=== PATIENT | male | born 1960 | race Caucasian/White ===

== ENCOUNTER 2021-01-07 09:32 | Emergency (ER) | payer OTHER, SELFPAY ==
[2021-01-07] VITALS (8 sets, daily range): BP systolic 146–206; BP diastolic 86–104; PULSE 60–77; RESP 18–20; TEMP 36.6; O2SAT 98; BMI 30.4; BMI 28.4
--- NOTE | 2021-01-07 | ECG_ITS ---
Test Reason : CHEST PAIN Blood Pressure : / mmHG Vent. Rate : 062 BPM Atrial Rate : 062 BPM P-R Int : 152 ms QRS Dur : 104 ms QT Int : 446 ms P-R-T Axes : 062 -22 062 degrees QTc Int : 452 ms Normal sinus rhythm Incomplete right bundle branch block Nonspecific ST and T wave abnormality Abnormal ECG No previous ECGs available Referred By: Lluvia Arcos Electronically Signed By:JUSTA NELSON MD
--- NOTE | ~2021-01-07 | XR_ITS ---
EXAMINATION: XR CHEST CLINICAL INFORMATION: Chest pain COMPARISON: None TECHNIQUE: Portable upright AP view of the chest was obtained. FINDINGS: The lungs are clear. The vascularity is normal. There is no airspace elevation or groundglass opacity or effusion. The heart is normal in size. The hilar and mediastinal contours and bony structures are unremarkable. There is focal irregularity anterior lateral left 6th rib consistent with prior injury, likely healed fracture. No visible lucent fracture line. Recommend correlation with patient's symptoms to exclude acute or recent injury at this site. No pneumothorax or pleural reaction. XR/XR chest 1V IMPRESSION: 1. Lungs clear. No pneumothorax, infiltrate, or effusion. 2. Left anterolateral sixth rib fracture, likely old. The Recommend correlation with patient's symptoms and clinical exam to exclude recent injury at this site.
--- NOTE | 2021-01-07 09:51 | ED_ITS ---
HPI - Chest Pain General Chief Complaint: Chest Pain Stated Complaint: chest pain, clammy skin, arm numbness, hbp Time Seen by Provider: 01/07/21 09:51 Source: patient Mode of arrival: ambulatory Limitations: no limitations History of Present Illness complaint: chest pain Onset (ago): day(s) (3) Timing of current episode: episodic Prior episodes: No Onset: during exertion Pain location: substernal Pain radiation: right arm and left arm Severity: moderate Quality: tightness and heaviness Relieving factors: rest Exacerbating factors: exertion Associated symptoms: nausea, diaphoresis and dyspnea Treatment prior to arrival: none Related Data Allergies Allergy/AdvReac Type Severity Reaction Status Date / Time No Known Allergies Allergy Verified 01/07/21 09:56 Review of Systems Review of Systems: Constitutional : No Weight loss, No Fever, No Chills, pos sweats ENT/Mouth : No sore throat, No Rhinorrhea Eyes: No Eye Pain, No Swelling Cardiovascular : pos Chest Pain, pos SOB, pos Dyspnea on Exertion, No Orthopnea, No Edema, No Palpitations Respiratory : No Cough, No Sputum Gastrointestinal : pos Nausea, No Vomiting, No Diarrhea, No abdominal Pain, No Hematochezia, No Melena Genitourinary : No Dysuria, No Urinary Frequency Musculoskeletal : No joint pain, No Myalgias, No Joint Swelling Skin : No Skin Lesions, No rash Neuro : No Weakness, No Numbness, No Dizziness, No Headache Psych : No Anxiety/Panic, No Depression Heme/Lymph: No Bruising, No Lymphadenopathy Endocrine : No Polyuria, No Polydipsia All other systems reviewed and are negative PMFSH Past Medical History Attestation statement: The following information was validated with the patient. Medical History Depression Diabetes Patient denies medical problems Social History Social History Alcohol intake: never Patient Tobacco Use Status: Never used Tobacco Substance Use Type: Marijuana Physical Exam Vital Signs: Vital Signs: Last Vital Signs Temp 98 F 01/07/21 09:45 Pulse 77 01/07/21 11:41 Resp 20 01/07/21 11:41 BP 154/88 H 01/07/21 11:41 Pulse Ox 98 01/07/21 10:01 Body Mass Index 28.4 Appearance: Alert. Oriented X3. No acute distress. Eyes: Pupils equal, round and reactive to light. ENT: Pharynx normal. Neck: Normal inspection. Neck supple. CVS: Normal heart rate and rhythm. Pulses normal. Respiratory: No respiratory distress. Breath sounds normal. Abdomen: Soft and non-tender. Femoral pulses intact bilaterally Skin: Skin warm and dry. Normal skin color. Normal skin turgor. Extremities: No lower extremity edema. No calf ttp Neuro: Oriented X 3. No motor deficit. No sensory deficit. Course Course Course Narrative: BP improving and chest pain gone with nitro given 324mg ASA chest pain gone with nitro x2 Dr. Marques aware I have ordered heparin drip - still reports some mild discomfort ECHO ordered - tech at bedside Dr. 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 Anticipate admission for chest pain given his presentation vs transfer for UA/NSTEMI pending results. Patient aware of plan for need for further cardiac workup. Lab Data Result diagrams: 01/07/21 10:09 01/07/21 10:09 Labs: Lab Results 01/07/21 01/07/21 01/07/21 Range/Units 10:09 10:09 10:09 WBC 11.9 H (4.8-10.8) X10*3/uL RBC 5.37 (4.60-5.80) X10*6/uL Hgb 16.5 (14.0-18.0) g/dl Hct 46.0 (42.0-52.0) % MCV 85.7 (80.0-98.0) fL MCH 30.7 (27.0-33.0) pg MCHC 35.9 (31.0-36.0) g/dl RDW 12.8 (11.0-16.0) % Plt Count 284 (160-400) X10*3/uL MPV 9.4 (9.4-12.4) fL Immature Gran % (Auto) 0.3 (0.0-0.4) % Neut % (Auto) 79.8 H (45-73) % Lymph % (Auto) 12.3 L (20-40) % [place] % (Auto) 7.2 (2-11) % Eos % (Auto) 0.0 (0-4) % Baso % (Auto) 0.4 (0-2) % Lymph # (Auto) 1.5 (1.2-4.9) X10*3/uL [place] # (Auto) 0.9 (0.1-1.2) X10*3/uL Eos # (Auto) 0.0 (0.0-0.4) X10*3/uL Baso # (Auto) 0.1 (0.0-0.2) X10*3/uL Abs Immat Gran (auto) 0.03 (0.00-0.03) X10*3/uL Absolute Neuts (auto) 9.5 H (2.0-8.3) x10*3/uL Absolute Nucleated RBC 0.000 (0.0-0.012) X10*3/uL Nucleated RBC % (auto) 0.0 (0.0-0.2) /100WBC PT 10.9 (9.9-13.0) SEC INR 1.0 (0.9-1.1) APTT 30.4 (24.1-38.0) SEC D-Dimer High Sensitivty < 150 NG/ML Sodium 135 (135-145) mmol/L Potassium 4.3 (3.3-5.1) mmol/L Chloride 104 (96-108) mmol/L Carbon Dioxide 22 (22-29) mmol/L Anion Gap 13 (12-20) BUN 11 (9-16) mg/dL Creatinine 0.85 (0.5-1.4) mg/dL Estim Creat Clear Calc 125.7 Estimated GFR > 60 Random Glucose 118 H (60-115) mg/dL Calcium 9.7 (8.4-10.2) mg/dL Magnesium 2.1 (1.6-2.6) mg/dL Total Bilirubin 0.6 (0.0-1.0) mg/dL Direct Bilirubin 0.2 (0.0-0.5) mg/dL AST 214 H (5-37) U/L ALT 70 H (0-40) U/L Alkaline Phosphatase 76 (39-117) U/L Troponin I High Sens (<3.5-35.0) ng/L Total Protein 7.7 (6.5-8.0) g/dL Albumin 4.5 (3.5-5.0) g/dL COVID-19 (LACY) (Negative) COVID-19 Clin Com 01/07/21 01/07/21 Range/Units 10:09 10:09 WBC (4.8-10.8) X10*3/uL RBC (4.60-5.80) X10*6/uL Hgb (14.0-18.0) g/dl Hct (42.0-52.0) % MCV (80.0-98.0) fL MCH (27.0-33.0) pg MCHC (31.0-36.0) g/dl RDW (11.0-16.0) % Plt Count (160-400) X10*3/uL MPV (9.4-12.4) fL Immature Gran % (Auto) (0.0-0.4) % Neut % (Auto) (45-73) % Lymph % (Auto) (20-40) % [place] % (Auto) (2-11) % Eos % (Auto) (0-4) % Baso % (Auto) (0-2) % Lymph # (Auto) (1.2-4.9) X10*3/uL [place] # (Auto) (0.1-1.2) X10*3/uL Eos # (Auto) (0.0-0.4) X10*3/uL Baso # (Auto) (0.0-0.2) X10*3/uL Abs Immat Gran (auto) (0.00-0.03) X10*3/uL Absolute Neuts (auto) (2.0-8.3) x10*3/uL Absolute Nucleated RBC (0.0-0.012) X10*3/uL Nucleated RBC % (auto) (0.0-0.2) /100WBC PT (9.9-13.0) SEC INR (0.9-1.1) APTT (24.1-38.0) SEC D-Dimer High Sensitivty NG/ML Sodium (135-145) mmol/L Potassium (3.3-5.1) mmol/L Chloride (96-108) mmol/L Carbon Dioxide (22-29) mmol/L Anion Gap (12-20) BUN (9-16) mg/dL Creatinine (0.5-1.4) mg/dL Estim Creat Clear Calc Estimated GFR Random Glucose (60-115) mg/dL Calcium (8.4-10.2) mg/dL Magnesium (1.6-2.6) mg/dL Total Bilirubin (0.0-1.0) mg/dL Direct Bilirubin (0.0-0.5) mg/dL AST (5-37) U/L ALT (0-40) U/L Alkaline Phosphatase (39-117) U/L Troponin I High Sens 19494.2 H* (<3.5-35.0) ng/L Total Protein (6.5-8.0) g/dL Albumin (3.5-5.0) g/dL COVID-19 (LACY) Negative (Negative) COVID-19 Clin Com See Note ECG Data ECG #1: Attestation: I personally reviewed and interpreted this ECG as follows: ECG interpretation date: 01/07/21 ECG interpretation time: 10:12 Interpretation: Rate: 62 Rhythm: NSR Tyler: normal Normal P waves. Normal GISELL. incomplete RBBB ST T wave : no MY, subtle ST depression V3 qTC: normal prior studies: no priors The study has been interpreted contemporaneously by me. EKG #2 POSTERIOR Rate:78 Rhythm: NSR Tyler: left Normal P waves. Normal GISELL. incomplete RBBB ST T wave : no MY in V7-V9 qTC: normal prior studies: no priors The study has been interpreted contemporaneously by me. . Critical Care Time Critical Care Time Critical Care Time: Yes Total Critical Care Time: 60 Attestation: medical consult, transfer to tertiary center I attest to this time spent taking care of the patient Discharge Plan Discharge Clinical Impression: Non-ST elevation MS (NSTEMI), Unstable angina pectoris Chest pain Qualifiers: Chest pain type: precordial pain Qualified Code(s): R07.2 - Precordial pain Patient Disposition: Xfer Acute Care Hospital Transfer Details: [facility] Interventions: Acute Care Transfer Worksheet (ED) Last Done: 01/07/21 12:00 Discharge Date/Time: 01/07/21 12:00
[2021-01-07] MEDS: Aspirin 81 MG TAB.CHEW 324 MG PO (10:10)
[2021-01-07] MEDS: Nitroglycerin 0.4 MG TAB.SUBL SUBLINGUAL ×2 (10:11→10:33)
[2021-01-07 10:15] LABS: MANUAL DIFF FLAG NO
[2021-01-07 10:16] LABS: Basophils Absolute Auto 0.1 X10*3/uL (0.0-0.2); Basophils Percent Auto 0.4 % (0-2); Hemoglobin 16.5 g/dl (14.0-18.0); Imm Gran Abs Auto 0.03 X10*3/uL (0.00-0.03); Imm Gran Pct Auto 0.3 % (0.0-0.4); Lymphocytes Absolute Auto 1.5 X10*3/uL (1.2-4.9); Lymphocytes Percent Auto 12.3 % (20-40); Mean Corpuscular HGB Conc 35.9 g/dl (31.0-36.0); Mean Corpuscular Hemoglobin 30.7 pg (27.0-33.0); Mean Corpuscular Volume 85.7 fL (80.0-98.0); Mean Platelet Volume 9.4 fL (9.4-12.4); Monocytes Absolute Auto 0.9 X10*3/uL (0.1-1.2); Monocytes Percent Auto 7.2 % (2-11); Neutrophils Absolute Auto 9.5 x10*3/uL (2.0-8.3); Neutrophils Percent Auto 79.8 % (45-73); Platelet Count 284 X10*3/uL (160-400); Red Blood Count 5.37 X10*6/uL (4.60-5.80); Red Cell Distribution Width 12.8 % (11.0-16.0); White Blood Count 11.9 X10*3/uL (4.8-10.8)
--- NOTE | 2021-01-07 10:16 | PC.NURSE ---
pt reports midsternal chest pain that radiates to bilateral upper extremities, some tingling in the fingers, slight nausea and also reports some sob, ns on the monitor 60-70, slightly hypertensive, pt already medicate per md orders
[2021-01-07 10:27] LABS: Prothrombin Time 10.9 SEC (9.9-13.0)
[2021-01-07 10:29] LABS: Partial Thromboplastin Time 30.4 SEC (24.1-38.0)
[2021-01-07 10:31] LABS: COVID-19 Test Negative (Negative); IDNOW Serial# 9DD0AD1C
--- NOTE | 2021-01-07 10:32 | PC.NURSE ---
pt reports feeling a little better after the first nitro, pain at 4/10, pt received his second dose of nitro
[2021-01-07 10:36] LABS: D Dimer High Sensitivity < 150 NG/ML
[2021-01-07 10:40] LABS: Alanine Aminotransferase 70 U/L (0-40); Albumin Level 4.5 g/dL (3.5-5.0); Alkaline Phosphatase 76 U/L (39-117); Anion Gap 13 (12-20); Aspartate Amino Transferase 214 U/L (5-37); Bilirubin Direct 0.2 mg/dL (0.0-0.5); Bilirubin Total 0.6 mg/dL (0.0-1.0); Blood Urea Nitrogen 11 mg/dL (9-16); Calcium 9.7 mg/dL (8.4-10.2); Carbon Dioxide 22 mmol/L (22-29); Chloride 104 mmol/L (96-108); Creatinine Clr Calc Pharmacy 125.7; Estimated Glomerular Filt Rate > 60; Glucose Random 118 mg/dL (60-115); Magnesium 2.1 mg/dL (1.6-2.6); Potassium 4.3 mmol/L (3.3-5.1); Sodium 135 mmol/L (135-145); Total Protein 7.7 g/dL (6.5-8.0)
--- NOTE | 2021-01-07 10:52 | PC.NURSE ---
pt reports feeling better after the second nitro, reprots that the chest tightness is getting better nut unable to give a number
--- NOTE | 2021-01-07 11:01 | CA_ITS ---
Transthoracic Echocardiogram Patient (Last, First, Middle): Keo Kingston, Gender: Male Date of : 1960 Age: 60 Procedure Date: 01/07/2021 Procedure Type: Transthoracic Echocardiogram Location: ER Height: 193.04 cm Weight: 106.14 kg BSA: 2.37 m2 Heart Rate: bpm BP: 155 / 101 mmHg Tabular Typist: BETO Referring MD: Lluvia Arcos DO Symptoms: chest pain, NSTEMI Study Quality: Fair Conclusions: - 1. Low normal LV systolic function with grade 1 diastolic dysfunction with moderate asymmetric septal hypertrophy with regional wall motion abnormality in circumflex territory 2. Normal cardiac valvular Doppler 3. Normal RV systolic pressure 4. No pericardial effusion Findings Left Ventricle Normal left ventricular cavity size. There is normal left ventricular wall thickness. The left ventricular systolic function is low normal. The visually estimated ejection fraction is between 50-55%. There is evidence of regional wall motion abnormalities. Spectral Doppler is indicative of an impaired relaxation filling pattern. E/E prime ratio is <8, consistent with normal filling pressures. Evidence suggests grade I (mild) diastolic dysfunction. There is moderate septal asymmetric hypertrophy. Wall Motion Rest Echo Findings The anterolateral wall and inferolateral wall are hypokinetic. All other scored wall segments showed normal motion. Right Ventricle Normal right ventricular cavity size and systolic function. Atria The left atrium is likely dilated. There is lipomatous hypertrophy of the interatrial septum. There is no evidence of interatrial shunt. The right atrium is normal in size. Aortic Valve There is mild thickening of the aortic valve. There is no aortic valve stenosis. There is no aortic valve regurgitation. Mitral Valve There is mild anterior and posterior mitral leaflet thickening. There is mild mitral annular calcification. There is trace mitral valve regurgitation. There is no mitral valve stenosis. Pulmonic Valve The pulmonic valve was not well visualized. Tricuspid Valve Likely normal tricuspid valve structure and function. There is mild tricuspid valve regurgitation. The right ventricular systolic pressure is normal. The right ventricular systolic pressure is 25 mmHg. Normal right atrial pressure. There is no evidence of pulmonary hypertension. Great Vessels The pulmonary artery was not well visualized. There is mild dilatation of the ascending aorta measuring 3.80 cm. Venous The inferior vena cava is normal in size and collapses greater than 50% with inspiration. Pericardium/Pleural There is no evidence of pericardial effusion. Prior Study Comparison No prior study available for comparison. Measurements 2D Linear Measurements IVSd: 1.60 0.6-0.9/0.6-1.0 cm LVIDd: 4.55 3.9-5.3/4.2-5.9 cm LVIDd Index: 1.92 2.4-3.2/2.2-3.1 cm/m2 LVIDs: 3.23 2.0-3.6 cm LVPWd: 1.13 0.7-1.1 cm Ao Root: 3.60 2.1-3.5 cm LA Diam: 4.60 2.7-3.8/3.0-4.0 cm LAIDs Index: 1.94 1.5-2.3 cm/m2 LV Mass: 303.30 67-162/88-224 g LV Mass Index: 127.97 43-95/49-115 g/m2 LVOT Diam: 2.10 3.0+(-)1.3 cm Mitral Valve MV Pk E: 0.32 MV PK A: 0.72 MV Decel Time: 415.00 E/A: 0.40 E'Lateral: 3.92 E'Medial: 4.24 E/E' Med: 7.50 E/E' Lat: 8.10 PHT: 121.00 MVA PHT: 1.82 Decel [place]: 0.77 Aortic Valve AoV Pk Joon: 1.46 AoV Mn Joon: 1.03 AoV VTI: 0.26 AoV Pk Grad: 9.00 Aov Mn Grad: 5.00 MACHELLE Cont.VTI: 2.59 LVOT LVOT Pk Joon: 1.04 LVOT Mn Joon: 0.71 LVOT VTI: 0.19 LVOT Pk Grad: 4.00 LVOT Mn Grad: 2.00 LVOT Diam: 2.10 LVOT Area: 3.46 Diastolic Function MV Pk E: 0.32 MV Pk A: 0.72 E/A: 0.40 E'Medial: 4.24 E/E' Med: 7.50 E' Laterial: 3.92 E/E' Lat: 8.10 Right Ventricle TAPSE (mm): 14.30 TVS' Joon: 2.19 Tricuspid Valve TR Pk Joon: 2.06 TR Pk Grad: 17.00 RA Press: 8.00 RVSP: 25.00 Great Vessels Aorta Ao Root-2D: 3.60 2.0-3.7 cm Ao Asc: 3.80 2.1-3.4 cm Ao Arch: 3.00 Updated in Other Vendor System with Status of Final Fady Marques MD electronically signed on 01/07/2021 1:47:43 PM with status of Final
[2021-01-07] MEDS: Atorvastatin Calcium 80 MG TABLET PO (11:28)
[2021-01-07] MEDS: Ticagrelor 90 MG TABLET 180 MG PO (11:28)
--- NOTE | 2021-01-07 11:30 | PC.NURSE ---
ECHO BEING PERFORMED AT BEDSIDE
--- NOTE | 2021-01-07 11:33 | ECG_ITS ---
Test Reason : ST ABNORMALITY POSTERIOR EKG Blood Pressure : / mmHG Vent. Rate : 078 BPM Atrial Rate : 078 BPM P-R Int : 152 ms QRS Dur : 098 ms QT Int : 420 ms P-R-T Axes : 047 -41 054 degrees QTc Int : 478 ms Normal sinus rhythm Left axis deviation RSR' or QR pattern in V1 suggests right ventricular conduction delay Nonspecific ST abnormality Anterior leads Abnormal ECG DONE POSTERIORLY. Referred By: Lluvia Arcos Electronically Signed By:JUSTA NELSON MD
[2021-01-07] MEDS: Heparin Sodium,Porcine 5,000 UNIT/ML VIAL 4200 UNIT IVPUSH (11:36)
[2021-01-07] MEDS: Heparin Sodium,Porcine/1/2NS 25,000 UNIT/250 ML IV.SOLN 10 UNIT IVCONT (11:38)
--- NOTE | 2021-01-07 11:51 | PC.NURSE ---
REPORT GIVEN TO ARTURO AT THE [facility]
--- NOTE | 2021-01-07 12:10 | P.CONCA_ITS ---
History of Present Illness History of Present Illness Date of Service: 01/07/21 Requesting physician: Lluvia Arcos Consult reason: myocardial infarction Chief complaint: Acute posterior myocardial infarction Narrative: I was requested to see Keo emergently in cardiology consultation today for acute myocardial infarction. Based on his history. Patient is pleasant 60-year-old male who is limited in activity due to multiple joint and pain related issues. Otherwise very active. Three days ago he went to play golf. While walking into the golf club be developed retrosternal chest pressure tightness associated with feeling clammy and diaphoretic. Pain radiating left arm with numbness. He then turned around and went home. Symptoms lasted for about an hour. Did not seek medical attention. Following day he again had similar symptoms but symptoms subsided and he did not seek medical attention. Symptoms are self-limiting. Following day on [place] had dinner with his brother and following the denied he developed similar symptoms again associated with clamminess, diaphoresis and nausea at this time. He then decided to go home, drove himself home. Symptoms then persisted throughout the night. He to couple of ibuprofen. Symptoms became milder but never completely dissipated. This morning he decided to come to the urgent care. Urgent a was noted to have anterior ST depression, most consistent with possible posterior WV. he was then sent to the emergency room. In the emergency room the EKGs have shown improved ST depression but early transition from V1 to V2 consistent with posterior WV. his initial troponin is 43,000. His blood pressure is elevated he was given 2 sublingual nitroglycerin with improvement in his chest pressure but still present, but he feels lot better. No shortness of breath. Cardiology consult was called emergently for further management plan. Review of Systems Constitutional: Constitutional: Reports no additional constitutional complaints Eyes: Eyes: Reports no additional eye complaints ENT: Reports system reviewed and no additional complaints, except as documented Cardiovascular: Cardiovascular: Reports chest pain, Reports chest pain with activity, Denies lightheadedness, Denies Loss of Consciousness, Denies palpitations, Reports dyspnea and Reports other (Chest discomfort with clamminess, diaphoresis, nausea) Respiratory: Respiratory: Reports no additional respiratory complaints and Reports dyspnea Gastrointestinal: Gastrointestinal: Reports no additional gastrointestinal complaints Genitourinary: Genitourinary: Reports no additional male genitourinary co mplaints Musculoskeletal: Musculoskeletal: Reports no additional musculoskeletal complaints Integumentary/Breasts: Skin/Breast: Reports system reviewed and no additional complaints, except as docu Neurologic: Reports system reviewed and no additional complaints, except as documented Psychiatric: Psychiatric: Reports no additional psychiatric complaints Endocrine: Endocrine: Reports no additional endocrine complaints and Denies palpitations Hematologic/Lymphatic: Hematologic/Lymphatic: Reports no additional hematologic/lymphatic complaints Allergic/Immunologic: Allergic/Immunologic: Reports no additional allergic/immunologic complaints [facility] Past Medical History Medical History Depression Diabetes Patient denies medical problems Social History Social History Alcohol intake: never Patient Tobacco Use Status: Never used Tobacco Use of substances other than those prescribed or required for medical reasons: Yes Substance Use Type: Marijuana Advance Directives: No Advance Directives Information Provided: No Meds Allergies Allergy/AdvReac Type Severity Reaction Status Date / Time No Known Allergies Allergy Verified 01/07/21 09:56 Active Medications: Current Medications Heparin Sodium (Porcine) (Heparin Sodium,Porcine 5,000 Unit/Ml Vial) 4,200 unit 40 unit/kg (4200 unit) IVPUSH PROTOCOL BOLUS PRN; Protocol PRN Reason: 40 unit/kg - Heparin Protocol Last Admin: 01/07/21 11:36 Dose: 4,200 unit Documented by: Heparin Sodium (Porcine) (Heparin Sodium,Porcine 5,000 Unit/Ml Vial) 8,500 unit 80 unit/kg (8500 unit) IVPUSH PROTOCOL BOLUS PRN; Protocol PRN Reason: 80 unit/kg - Heparin Protocol Heparin Sodium/Sodium Chloride () 25,000 unit in 250 mls @ 0 mls/hr IVCONT .Q0M [facility]; Protocol Last Admin: 01/07/21 11:38 Dose: 9.43 units/kg/hr, 10 mls/hr Documented by: Physical Exam Vital Signs: Vital Signs: Last Vital Signs Temp 98 F 01/07/21 09:45 Pulse 77 01/07/21 11:41 Resp 20 01/07/21 11:41 BP 154/88 H 01/07/21 11:41 Pulse Ox 98 01/07/21 10:01 Body Mass Index 28.4 Const: General: cooperative, comfortable, no acute distress, alert and awake Nutritional Appearance: overweight Orientation/consciousness: patient oriented x3 Limitations: no limitations HENMT: Head: Yes normocephalic and Yes atraumatic Neck: Neck: Yes trachea midline, Yes supple and Yes no JVD Chest: Chest palpation & inspection: normal inspection of the chest Resp: Effort & Inspection: normal respiratory effort Auscultation: clear to auscultation bilaterally Cardio: Jugular venous distension: no JVD Palpation: normal PMI Rate: regular rate Rhythm: regular rhythm Heart sounds: S1 normal heart sound present, S2 normal heart sound present, no click, no gallops, no murmurs, no rubs and Other heart sounds present (S4 present) GI: Auscultation: normal bowel sounds Skin: General skin exam: no rashes or lesions noted Neuro: General: patient oriented x3 and no focal motor deficits Extrem: General: Yes no clubbing, cyanosis or edema Psych: Appearance: grossly normal Objective Labs and Meds Result diagrams: 01/07/21 10:09 01/07/21 10:09 Lab results: Laboratory Results - last 24 hr 01/07/21 01/07/21 01/07/21 10:09 10:09 10:09 WBC 11.9 H RBC 5.37 Hgb 16.5 Hct 46.0 MCV 85.7 MCH 30.7 MCHC 35.9 RDW 12.8 Plt Count 284 MPV 9.4 Immature Gran % (Auto) 0.3 Neut % (Auto) 79.8 H Lymph % (Auto) 12.3 L [place] % (Auto) 7.2 Eos % (Auto) 0.0 Baso % (Auto) 0.4 Lymph # (Auto) 1.5 [place] # (Auto) 0.9 Eos # (Auto) 0.0 Baso # (Auto) 0.1 Abs Immat Gran (auto) 0.03 Absolute Neuts (auto) 9.5 H Absolute Nucleated RBC 0.000 Nucleated RBC % (auto) 0.0 PT 10.9 INR 1.0 APTT 30.4 D-Dimer High Sensitivty < 150 Sodium 135 Potassium 4.3 Chloride 104 Carbon Dioxide 22 Anion Gap 13 BUN 11 Creatinine 0.85 Estim Creat Clear Calc 125.7 Estimated GFR > 60 Random Glucose 118 H Calcium 9.7 Magnesium 2.1 Total Bilirubin 0.6 Direct Bilirubin 0.2 AST 214 H ALT 70 H Alkaline Phosphatase 76 Troponin I High Sens Total Protein 7.7 Albumin 4.5 COVID-19 ([facility]) COVID-19 Clin Com 01/07/21 01/07/21 10:09 10:09 WBC RBC Hgb Hct MCV MCH MCHC RDW Plt Count MPV Immature Gran % (Auto) Neut % (Auto) Lymph % (Auto) [place] % (Auto) Eos % (Auto) Baso % (Auto) Lymph # (Auto) [place] # (Auto) Eos # (Auto) Baso # (Auto) Abs Immat Gran (auto) Absolute Neuts (auto) Absolute Nucleated RBC Nucleated RBC % (auto) PT INR APTT D-Dimer High Sensitivty Sodium Potassium Chloride Carbon Dioxide Anion Gap BUN Creatinine Estim Creat Clear Calc Estimated GFR Random Glucose Calcium Magnesium Total Bilirubin Direct Bilirubin AST ALT Alkaline Phosphatase Troponin I High Sens 73515.2 H* Total Protein Albumin COVID-19 ([facility]ACY) Negative COVID-19 Clin Com See Note Urgent care EKG shows normal sinus rhythm with anterior ST depression with incomplete right bundle-branch block EKG from the ED shows resolved ST depression with early transition from V1 to V2 with right bundle-branch block pattern consistent with posterior [place]. Preliminary echo findings are consistent with anterolateral and posterolateral wall motion abnormality consistent with circ territory myocardial infarction. Imaging Radiologist's impression: Impressions Chest X-Ray 01/07/21 09:57 IMPRESSION: 1. Lungs clear. No pneumothorax, infiltrate, or effusion. 2. Left anterolateral sixth rib fracture, likely old. The Recommend correlation with patient's symptoms and clinical exam to exclude recent injury at this site. Assessment and Plan (1) Acute posterior myocardial infarction: Status: Acute Acute posterior myocardial infarction with delayed presentation but ongoing chest discomfort which is suggestive of viable myocardium. Discussed with patient the mechanism myocardial infarction and the need for emergent cardiac catheterization. Case discussed with Interventional Cardiology at [facility] , who is accepting the patient and patient will be transferred directly to the nitriles lab technician for cardiac catheterization and possible intervention if the arteries not completely occluded. This was discussed with the patient. Explained the risks, benefits, alternatives 2nd opinion to procedure. This is the best approach to salvage viable myocardium if possible. He has been started on IV heparin drip. Has received 80 mg of Lipitor as well as Brilinta 180 mg and aspirin 324 mg. He is also currently on nitro paste and has received metoprolol. Importance of good regular follow-up was discussed with him. He understands and shows agreement. Total 45 minute spent in coordinating his transfer and care. Thank you for allowing me to partake in his care Procedures Date of Service Date of Service: 01/07/21
== END 2021-01-07 12:00 | disposition short-term general hospital (02) ==
PROVIDERS: Emergency Provider Emergency Medicine
DX: I21.29 ST elevation (STEMI) myocardial infarction involving other sites (principal); I20.0 Unstable angina; R07.2 Precordial pain; R20.2 Paresthesia of skin; R06.02 Shortness of breath; R11.0 Nausea; Z20.822 Contact with and (suspected) exposure to COVID-19; E11.9 Type 2 diabetes mellitus without complications
CPT/HCPCS: 36415; 71045; 80048; 80076; 83735; 84484; 85025; 85379; 85610; 85730; 87635; 93005; 93306; 96365; 96375; 96376; 99285; 99291

== ENCOUNTER 2022-01-20 10:51 | Outpatient (REF) | payer OTHER, SELFPAY ==
[2022-01-20 13:49] LABS: MANUAL DIFF FLAG NO
[2022-01-20 13:54] LABS: Appearance Urine Clear; Color Urine Yellow; Glucose Urine UA >=1000 mg/dL (Negative); Leukocyte Esterase Urine Negative (Negative); Nitrite Urine Negative (Negative); PH 5.5 (5.0-9.0); Specific Gravity - Urine 1.015 (1.005-1.025); UMIC TRIGGER UA YES; Urine Blood Negative (Negative); Urine Ketones Negative (Negative); Urine Protein Negative (Neg-Trace)
[2022-01-20 13:55] LABS: Basophils Percent Auto 0.9 % (0-2); Hematocrit 47.7 % (42.0-52.0); Hemoglobin 16.3 g/dl (14.0-18.0); Lymphocytes Absolute Auto 1.1 X10*3/uL (1.2-4.9); Lymphocytes Percent Auto 31.4 % (20-40); Mean Corpuscular HGB Conc 34.2 g/dl (31.0-36.0); Mean Corpuscular Hemoglobin 29.6 pg (27.0-33.0); Mean Corpuscular Volume 86.7 fL (80.0-98.0); Monocytes Absolute Auto 0.3 X10*3/uL (0.1-1.2); Neutrophils Percent Auto 57.7 % (45-73); Platelet Count 236 X10*3/uL (160-400); White Blood Count 3.4 X10*3/uL (4.8-10.8)
[2022-01-20 13:56] LABS: Bacteria Urine None Seen (None Seen); Hyaline Casts Urine 0-2 /LPF (0-2); RBC Urine 0-2 /HPF (0-2); Squamous Epithelial Cell Urine 0-2 /HPF (0-2); WBC Urine 0-5 /HPF (0-5)
[2022-01-20 14:32] LABS: Influenza A PCR NEGATIVE (Negative); Influenza B PCR NEGATIVE (Negative); Resp Syncy Virus RNA Qual PCR NEGATIVE (Negative); SARS COV2 PCR INHOUSE POSITIVE (Negative)
[2022-01-20 14:37] LABS: Creatinine Urine 28.16 mg/dL; Microalbumin Urine < 5.0 mg/L
[2022-01-20 14:56] LABS: Alanine Aminotransferase 34 U/L (0-40); Albumin Level 4.5 g/dL (3.5-5.0); Alkaline Phosphatase 93 U/L (39-117); Anion Gap 12 (12-20); Aspartate Amino Transferase 27 U/L (5-37); Bilirubin Total 0.6 mg/dL (0.0-1.0); Blood Urea Nitrogen 13 mg/dL (9-16); Calcium 9.1 mg/dL (8.4-10.2); Carbon Dioxide 28 mmol/L (22-29); Chloride 100 mmol/L (96-108); Cholesterol 153 mg/dL; Estimated Glomerular Filt Rate > 60; Glucose Random 77 mg/dL (60-115); Potassium 4.2 mmol/L (3.3-5.1); Prostate Specific Antigen Scr 0.85 ng/mL (<0.05-4.0); Sodium 136 mmol/L (135-145); Total Protein 7.4 g/dL (6.5-8.0)
[2022-01-20 15:35] LABS: Estimated Average Glucose 123 mg/dL; Hemoglobin A1c % 5.9 %
== END 2022-01-20 10:52 | disposition home or self-care (01) ==
LOC: HO.10HDL 10:51
PROVIDERS: Visit Provider Internal Medicine
DX: I10 Essential (primary) hypertension (principal); E11.9 Type 2 diabetes mellitus without complications; E78.00 Pure hypercholesterolemia, unspecified; Z20.822 Contact with and (suspected) exposure to COVID-19; Z12.5 Encounter for screening for malignant neoplasm of prostate
CPT/HCPCS: 0241U; 80053; 81001; 82043; 82465; 83036; 84153; 85025

== ENCOUNTER 2022-09-08 13:58 | Outpatient (REF) | payer OTHER, SELFPAY ==
[2022-09-08 14:11] LABS: MANUAL DIFF FLAG NO
[2022-09-08 14:24] LABS: Basophils Percent Auto 0.4 % (0-2); Eosinophils Percent Auto 0.1 % (0-4); Imm Gran Abs Auto 0.02 X10*3/uL (0.00-0.03); Imm Gran Pct Auto 0.3 % (0.0-0.4); Lymphocytes Absolute Auto 1.5 X10*3/uL (1.2-4.9); Lymphocytes Percent Auto 22.3 % (20-40); Mean Corpuscular HGB Conc 34.1 g/dl (31.0-36.0); Mean Corpuscular Hemoglobin 29.6 pg (27.0-33.0); Mean Corpuscular Volume 86.8 fL (80.0-98.0); Mean Platelet Volume 9.7 fL (9.4-12.4); Monocytes Absolute Auto 0.4 X10*3/uL (0.1-1.2); Monocytes Percent Auto 6.3 % (2-11); Neutrophils Absolute Auto 4.7 x10*3/uL (2.0-8.3); Neutrophils Percent Auto 70.6 % (45-73); Platelet Count 248 X10*3/uL (160-400); Red Blood Count 5.07 X10*6/uL (4.60-5.80); Red Cell Distribution Width 14.2 % (11.0-16.0); White Blood Count 6.7 X10*3/uL (4.8-10.8)
[2022-09-08 14:34] LABS: Estimated Average Glucose 105 mg/dL; Hemoglobin A1c % 5.3 %
[2022-09-08 15:01] LABS: Alanine Aminotransferase 38 U/L (0-40); Albumin Level 4.3 g/dL (3.5-5.0); Alkaline Phosphatase 63 U/L (39-117); Anion Gap 17 (12-20); Aspartate Amino Transferase 29 U/L (5-37); Bilirubin Total 0.5 mg/dL (0.0-1.0); Blood Urea Nitrogen 13 mg/dL (9-16); Carbon Dioxide 20 mmol/L (22-29); Chloride 104 mmol/L (96-108); Estimated Glomerular Filt Rate > 60; Glucose Random 76 mg/dL (60-115); Lipase 21 U/L (8-78); Potassium 4.3 mmol/L (3.3-5.1); Sodium 137 mmol/L (135-145); Total Protein 7.2 g/dL (6.5-8.0)
== END 2022-09-08 13:59 | disposition home or self-care (01) ==
LOC: HO.LAB 13:58
PROVIDERS: PCP Internal Medicine; Visit Provider Internal Medicine
DX: I25.10 Atherosclerotic heart disease of native coronary artery without angina pectoris (principal); E11.9 Type 2 diabetes mellitus without complications; I10 Essential (primary) hypertension; R10.9 Unspecified abdominal pain
CPT/HCPCS: 36415; 80053; 83036; 83690; 85025

== ENCOUNTER 2022-12-08 10:11 | Outpatient (REF) | payer OTHER, SELFPAY ==
[2022-12-08 10:51] LABS: MANUAL DIFF FLAG NO
[2022-12-08 10:56] LABS: Basophils Percent Auto 0.8 % (0-2); Eosinophils Absolute Auto 0.2 X10*3/uL (0.0-0.4); Eosinophils Percent Auto 3.9 % (0-4); Hematocrit 44.5 % (42.0-52.0); Hemoglobin 15.1 g/dl (14.0-18.0); Imm Gran Abs Auto 0.01 X10*3/uL (0.00-0.03); Imm Gran Pct Auto 0.2 % (0.0-0.4); Lymphocytes Absolute Auto 1.3 X10*3/uL (1.2-4.9); Lymphocytes Percent Auto 24.9 % (20-40); Mean Corpuscular HGB Conc 33.9 g/dl (31.0-36.0); Mean Corpuscular Hemoglobin 29.9 pg (27.0-33.0); Mean Corpuscular Volume 88.1 fL (80.0-98.0); Mean Platelet Volume 10.2 fL (9.4-12.4); Monocytes Absolute Auto 0.3 X10*3/uL (0.1-1.2); Monocytes Percent Auto 6.6 % (2-11); Neutrophils Absolute Auto 3.3 x10*3/uL (2.0-8.3); Neutrophils Percent Auto 63.6 % (45-73); Platelet Count 242 X10*3/uL (160-400); Red Blood Count 5.05 X10*6/uL (4.60-5.80); Red Cell Distribution Width 13.6 % (11.0-16.0); White Blood Count 5.2 X10*3/uL (4.8-10.8)
[2022-12-08 11:13] LABS: Estimated Average Glucose 105 mg/dL; Hemoglobin A1c % 5.3 % (<6.0)
[2022-12-08 11:30] LABS: Alanine Aminotransferase 32 U/L (0-40); Albumin Level 4.2 g/dL (3.5-5.0); Alkaline Phosphatase 67 U/L (39-117); Anion Gap 13 (12-20); Aspartate Amino Transferase 29 U/L (5-37); Bilirubin Total 0.6 mg/dL (0.0-1.0); Blood Urea Nitrogen 14 mg/dL (9-16); Calcium 9.7 mg/dL (8.4-10.2); Carbon Dioxide 22 mmol/L (22-29); Chloride 106 mmol/L (96-108); Cholesterol 157 mg/dL (<200); Estimated Glomerular Filt Rate > 60; Glucose Fasting 101 mg/dL (60-99); HDL Cholesterol 56 mg/dL (>40); LDL Cholesterol Calculated 88 mg/dL (<100); Potassium 4.5 mmol/L (3.3-5.1); Sodium 136 mmol/L (135-145); Total Protein 7.2 g/dL (6.5-8.0); Triglycerides 66 mg/dL (<150)
[2022-12-08 11:50] LABS: Prostate Specific Antigen Scr 0.65 ng/mL (<0.05-4.0)
== END 2022-12-08 10:12 | disposition home or self-care (01) ==
LOC: HO.10HDL 10:11
PROVIDERS: Visit Provider Internal Medicine
DX: I25.10 Atherosclerotic heart disease of native coronary artery without angina pectoris (principal); E11.9 Type 2 diabetes mellitus without complications; I10 Essential (primary) hypertension; R35.1 Nocturia
CPT/HCPCS: 36415; 80053; 80061; 83036; 84153; 85025

== ENCOUNTER 2023-03-02 10:47 | Outpatient (REF) | payer SELFPAY ==
--- NOTE | ~2023-03-02 | XR_ITS ---
EXAMINATION: XR CHEST CLINICAL INFORMATION: Coronary artery disease, atypical chest discomfort. COMPARISON: 01/07/2021 chest radiograph. TECHNIQUE: 2 views of the chest were obtained. FINDINGS: Redemonstration of deformity along the anterior aspect of the left sixth rib characteristic of prior fracture. Median sternotomy wires and clips status post CABG. Borderline enlarged cardiac silhouette. There is no gross pneumothorax. No pleural effusion. Degenerative changes in the thoracic spine. Mild bibasilar streaky opacities, left greater than right, may represent atelectasis/scar versus pneumonia. XR/XR chest 2V IMPRESSION: 1. Mild bibasilar streaky opacities, left greater than right, may represent atelectasis/scar versus pneumonia. 2. Borderline enlarged cardiac silhouette. 3. Status post CABG. This study was presented today March 06, 2023 for interpretation. PSA staff will provide results to referring provider at this time.
[2023-03-02 11:17] LABS: MANUAL DIFF FLAG NO
[2023-03-02 12:11] LABS: Basophils Absolute Auto 0.1 X10*3/uL (0.0-0.2); Basophils Percent Auto 0.9 % (0-2); Eosinophils Percent Auto 0.2 % (0-4); Hematocrit 46.2 % (42.0-52.0); Hemoglobin 16.1 g/dl (14.0-18.0); Imm Gran Abs Auto 0.01 X10*3/uL (0.00-0.03); Imm Gran Pct Auto 0.2 % (0.0-0.4); Lymphocytes Absolute Auto 1.3 X10*3/uL (1.2-4.9); Lymphocytes Percent Auto 23.3 % (20-40); Mean Corpuscular HGB Conc 34.8 g/dl (31.0-36.0); Mean Corpuscular Hemoglobin 30.1 pg (27.0-33.0); Mean Corpuscular Volume 86.5 fL (80.0-98.0); Mean Platelet Volume 10.3 fL (9.4-12.4); Monocytes Absolute Auto 0.4 X10*3/uL (0.1-1.2); Monocytes Percent Auto 7.3 % (2-11); Neutrophils Absolute Auto 3.9 x10*3/uL (2.0-8.3); Neutrophils Percent Auto 68.1 % (45-73); Platelet Count 254 X10*3/uL (160-400); Red Blood Count 5.34 X10*6/uL (4.60-5.80); Red Cell Distribution Width 13.7 % (11.0-16.0); White Blood Count 5.8 X10*3/uL (4.8-10.8)
[2023-03-02 12:42] LABS: Alanine Aminotransferase 29 U/L (0-40); Albumin Level 4.6 g/dL (3.5-5.0); Alkaline Phosphatase 60 U/L (39-117); Anion Gap 10 (12-20); Aspartate Amino Transferase 29 U/L (5-37); Bilirubin Total 0.5 mg/dL (0.0-1.0); Blood Urea Nitrogen 14 mg/dL (9-16); C Reactive Protein < 0.10 mg/dL (< or = 0.50); Calcium 9.8 mg/dL (8.4-10.2); Carbon Dioxide 26 mmol/L (22-29); Chloride 104 mmol/L (96-108); Estimated Glomerular Filt Rate > 60; Glucose Random 87 mg/dL (60-115); Potassium 4.2 mmol/L (3.3-5.1); Sodium 136 mmol/L (135-145); Total Protein 7.7 g/dL (6.5-8.0)
== END 2023-03-02 10:48 | disposition home or self-care (01) ==
LOC: HO.LAB 10:47
PROVIDERS: PCP Internal Medicine; Visit Provider Internal Medicine
DX: I25.10 Atherosclerotic heart disease of native coronary artery without angina pectoris (principal); K21.9 Gastro-esophageal reflux disease without esophagitis; R07.89 Other chest pain; Z95.1 Presence of aortocoronary bypass graft
CPT/HCPCS: 36415; 71046; 80053; 82550; 85025; 86140

== ENCOUNTER → 2023-09-03 12:51 | Outpatient (REF) | payer OTHER, SELFPAY ==
--- NOTE | 2023-09-03 13:04 | CA_ITS ---
Transthoracic Echocardiogram Patient (Last, First, Middle): Keo Kingston, Gender: Male Date of : 1960 Age: 62 Procedure Date: 09/03/2023 Procedure Type: Transthoracic Echocardiogram Location: OP Height: 193.04 cm Weight: 102.06 kg BSA: 2.33 m2 Heart Rate: 56 bpm BP: 132 / 80 mmHg Ager Tender: DEANN Referring MD: Travis García MD Symptoms: CAD FATIGUE I25.10 R53.83 Study Quality: Adequate Conclusions: - The left ventricular systolic function is low normal. The visually estimated ejection fraction is between 50-55%. - The basal inferior and basal inferolateral segments are akinetic. - No obvious valvular pathology seen on this study. - There is mild dilatation of the ascending aorta measuring 3.90 cm and mild dilatation of the aortic arch measuring 3.90 cm. Findings Left Ventricle Normal left ventricular cavity size. There is moderately increased left ventricular wall thickness. The left ventricular systolic function is low normal. The visually estimated ejection fraction is between 50-55%. There is evidence of regional wall motion abnormalities. Diastolic function is normal for age. Wall Motion Rest Echo Findings The basal inferior and basal inferolateral segments are akinetic. Right Ventricle Mildly increased right ventricular cavity size. There is normal right ventricular systolic function. Atria The left atrium is mildly dilated. The right atrium is normal in size. Aortic Valve There is a normal trileaflet aortic valve. There is mild calcification of the aortic valve. There is no aortic valve stenosis. Mitral Valve The mitral valve appears normal. There is no mitral valve regurgitation. There is no mitral valve stenosis. Pulmonic Valve The pulmonic valve is likely normal. Tricuspid Valve Normal tricuspid valve structure. There is trace tricuspid valve regurgitation. There is no evidence of pulmonary hypertension. Great Vessels There is mild dilatation of the ascending aorta measuring 3.90 cm and mild dilatation of the aortic arch measuring 3.90 cm. Venous The inferior vena cava is normal in size and collapses greater than 50% with inspiration. Pericardium/Pleural There is no evidence of pericardial effusion. Prior Study Comparison Changes noted compared to prior study dated: 01/07/2021. Possible increase in aortic arch size but the images are suboptimal. Recommendations, Care & Conclusions No obvious valvular pathology seen on this study. Measurements 2D Linear Measurements IVSd: 1.31 0.6-0.9/0.6-1.0 cm LVIDd: 5.66 3.9-5.3/4.2-5.9 cm LVIDd Index: 2.43 2.4-3.2/2.2-3.1 cm/m2 LVIDs: 3.88 2.0-3.6 cm LVPWd: 1.24 0.7-1.1 cm LA Diam: 5.00 2.7-3.8/3.0-4.0 cm LAIDs Index: 2.15 1.5-2.3 cm/m2 LV Mass: 386.95 67-162/88-224 g LV Mass Index: 166.07 43-95/49-115 g/m2 LVOT Diam: 2.00 3.0+(-)1.3 cm 2D Systolic Function EF 4C: 52.90 >55% EF 2C: 61.10 >55% EF BiP: 56.50 >55% Mitral Valve MV Pk E: 0.64 MV PK A: 0.66 MV Decel Time: 203.00 E/A: 1.00 E'Lateral: 11.50 E'Medial: 7.29 E/E' Med: 8.80 E/E' Lat: 5.50 PHT: 60.00 MVA PHT: 3.67 Decel [place]: 3.14 Aortic Valve AoV Pk Joon: 1.45 AoV Mn Joon: 0.97 AoV VTI: 0.31 AoV Pk Grad: 8.00 Aov Mn Grad: 4.00 MACHELLE Cont.VTI: 2.85 LVOT LVOT Pk Joon: 1.28 LVOT Mn Joon: 0.86 LVOT VTI: 0.28 LVOT Pk Grad: 7.00 LVOT Mn Grad: 3.00 LVOT Diam: 2.00 LVOT Area: 3.14 Diastolic Function MV Pk E: 0.64 MV Pk A: 0.66 E/A: 1.00 E'Medial: 7.29 E/E' Med: 8.80 E' Laterial: 11.50 E/E' Lat: 5.50 Right Ventricle TAPSE (mm): 19.80 TVS' Joon: 10.50 Tricuspid Valve TR Pk Joon: 1.79 TR Pk Grad: 13.00 RA Press: 3.00 RVSP: 16.00 Great Vessels Aorta Sinus of Valsalva: 3.50 2.0-3.5 cm Ao Asc: 3.90 2.1-3.4 cm Ao Arch: 3.90 Pulmonary Valve PV Pk Joon: 0.90 Peak PV Grad: 3.00 Updated in Other Vendor System with Status of Final Davidson Catalan MD electronically signed on 09/04/2023 10:26:11 AM with status of Final
== END ==
LOC: HO.CARD 12:51
PROVIDERS: Visit Provider Internal Medicine
DX: I25.10 Atherosclerotic heart disease of native coronary artery without angina pectoris (principal); R53.83 Other fatigue
CPT/HCPCS: 93306

== ENCOUNTER → 2023-09-03 13:04 | Outpatient (BNV) | payer OTHER, SELFPAY | PROVIDERS: Visit Provider Internal Medicine | DX: I35.8 Other nonrheumatic aortic valve disorders (principal) | CPT/HCPCS: 93306 ==

== ENCOUNTER 2023-09-10 12:31 | Outpatient (REF) | payer OTHER, SELFPAY ==
[2023-09-10 12:44] LABS: MANUAL DIFF FLAG NO
[2023-09-10 14:01] LABS: Basophils Percent Auto 0.5 % (0-2); Eosinophils Absolute Auto 0.1 X10*3/uL (0.0-0.4); Hematocrit 45.6 % (42.0-52.0); Hemoglobin 15.8 g/dl (14.0-18.0); Imm Gran Abs Auto 0.01 X10*3/uL (0.00-0.03); Imm Gran Pct Auto 0.2 % (0.0-0.4); Lymphocytes Absolute Auto 1.7 X10*3/uL (1.2-4.9); Lymphocytes Percent Auto 28.2 % (20-40); Mean Corpuscular HGB Conc 34.6 g/dl (31.0-36.0); Mean Corpuscular Hemoglobin 30.6 pg (27.0-33.0); Mean Corpuscular Volume 88.2 fL (80.0-98.0); Mean Platelet Volume 10.3 fL (9.4-12.4); Monocytes Absolute Auto 0.3 X10*3/uL (0.1-1.2); Monocytes Percent Auto 5.4 % (2-11); Neutrophils Absolute Auto 3.8 x10*3/uL (2.0-8.3); Neutrophils Percent Auto 63.7 % (45-73); Platelet Count 238 X10*3/uL (160-400); Red Blood Count 5.17 X10*6/uL (4.60-5.80); Red Cell Distribution Width 13.4 % (11.0-16.0); White Blood Count 5.9 X10*3/uL (4.8-10.8)
[2023-09-10 14:56] LABS: Alanine Aminotransferase 31 U/L (0-40); Albumin Level 4.4 g/dL (3.5-5.0); Alkaline Phosphatase 64 U/L (39-117); Anion Gap 12 (12-20); Aspartate Amino Transferase 27 U/L (5-37); Bilirubin Total 0.6 mg/dL (0.0-1.0); Blood Urea Nitrogen 15 mg/dL (9-16); Calcium 9.7 mg/dL (8.4-10.2); Carbon Dioxide 27 mmol/L (22-29); Chloride 104 mmol/L (96-108); Estimated Glomerular Filt Rate > 60; Glucose Random 156 mg/dL (60-115); Sodium 139 mmol/L (135-145); Total Protein 7.2 g/dL (6.5-8.0); Troponin-I High Sensitivity 18.3 ng/L (<3.5-35.0)
[2023-09-10 15:09] LABS: Estimated Average Glucose 111 mg/dL; Hemoglobin A1c % 5.5 % (<6.0)
[2023-09-10 15:12] LABS: Free T4 (Free Thyroxine) 1.03 ng/dL (0.71-1.85); Thyroid Stimulating Hormone 1.49 uIU/mL (0.32-4.0)
== END 2023-09-10 12:32 | disposition home or self-care (01) ==
LOC: HO.LAB 12:31
PROVIDERS: PCP Internal Medicine; Visit Provider Internal Medicine
DX: E03.9 Hypothyroidism, unspecified (principal); I25.10 Atherosclerotic heart disease of native coronary artery without angina pectoris; I10 Essential (primary) hypertension; E78.00 Pure hypercholesterolemia, unspecified
CPT/HCPCS: 36415; 80053; 82550; 83036; 84439; 84443; 84484; 85025

== ENCOUNTER 2023-09-20 15:11 | Outpatient (AMB) | payer OTHER, SELFPAY ==
--- NOTE | 2023-09-20 15:23 | A.OFFVIS_ITS ---
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 He had presented emergency room with chest tightness along with jaw discomfort with feeling clammy and had come into the hospital was noted to have NSTEMI and was transferred to [facility]. He subsequently underwent cardiac catheterization which showed severe three-vessel disease undergoing 4 vessel coronary artery bypass grafting including VANCE to LAD, free radial graft to the OM and reverse saphenous venous graft to the diagonal and RPDA branch. Patient says subsequently he did well however in late spring he developed sudden-onset after waking up from sleep numbness in his left arm which is to this day present which was unexplained. Since then he has been having these symptoms although more concerning symptoms of intermittent episodes of chest discomfort radiating into the jaw which are not always exertional related. Started noticing significantly reduced exercise capacity playing golf. He said he feels fatigued more often and is also not able to work in his occupation because of significant fatigue and therefore came for further cardiac evaluation PND to undergo echocardiogram recently which showed low normal LVEF of 50-55% with basal inferior inferolateral wall motion abnormality. Compared to echocardiogram from April of 2021 done at [facility] as reduction LV ejection fraction with this new wall motion abnormalities. He said he has been taking all his medications. At rest he has slow heart rate and therefore not on metoprolol therapy. He has been taking his aspirin as well as high-intensity statin therapy. Although his LDL is not well optimized. He is most concerned about his reduced exercise capacity. He said he has history of hyperhidrosis which was treated with glycopyrrolate and had good result but recently he has noticed his excessive sweating that has come back on. [facility] Medical History CAD (coronary artery disease) Diabetes Depression Patient denies medical problems Surgical History Hx of CABG Family History Father No problems noted. Mother CAD (coronary artery disease) Social History Alcohol intake: never Patient Tobacco Use Status: Never used Tobacco Substance Use Type: Marijuana Review of Systems Const Denies chills, Denies daytime sleepiness, Reports fatigue, Denies fever(s), Denies frequent falls, Denies poor appetite, Denies snoring, Denies stops breathing during sleep, Denies weakness, Denies weight gain and Denies weight loss Eyes Denies loss of vision ENT Reports dizziness and Denies hearing loss Card Reports chest pain, Denies claudication, Reports leg edema, Denies lightheadedness, Denies palpitations, Denies dyspnea, Denies dyspnea on exertion and Denies orthopnea Resp Denies cough, Denies excessive phlegm production, Denies dyspnea, Denies dyspnea on exertion, Denies snoring and Denies wheezing GI Denies abdominal pain, Denies hematochezia, Denies change in bowel habits, Denies nausea and Denies vomiting Denies dysuria and Denies urinary frequency Musc Denies arthralgias, Denies muscle weakness, Denies numbness and Denies other (frequent falls) Skin/Breast Denies nail changes and Denies rash Neuro Denies Abnormal speech present, Reports dizziness, Denies frequent falls, Denies loss of vision, Denies memory loss, Denies numbness and Denies weakness Psych Denies depression and Denies memory loss Endo Reports fatigue and Denies palpitations Anshul/Lymph Reports easy bruising and Reports other (anemia) Aller/Immun Denies wheezing Physical Exam Vital Signs: Last Vital Signs Pulse 68 09/20/23 15:24 BP 130/74 09/20/23 15:24 BMI result Body Mass Index 28.2 Const General: cooperative, comfortable, no acute distress, alert, awake, Physically active and well groomed Nutritional Appearance: average body habitus and overweight Orientation/consciousness: patient oriented x3 Limitations: no limitations HEENT Head: Yes normocephalic and Yes atraumatic Neck Neck: Yes trachea midline, Yes supple and Yes no JVD Resp Effort & Inspection: normal respiratory effort Auscultation: clear to auscultation bilaterally Cardio Jugular venous distension: no JVD Palpation: normal PMI Rate: regular rate Rhythm: regular rhythm Heart sounds: S1 normal heart sound present, S2 normal heart sound present, no click, no gallops, no murmurs and no rubs GI Auscultation: normal bowel sounds Skin General skin exam: no rashes or lesions noted Neuro General: patient oriented x3 and no focal motor deficits Speech: No Abnormal speech present Extrem General: Yes no clubbing, cyanosis or edema Psych Appearance: grossly normal Assessment & Plan Assessment & Plan (1) CAD (coronary artery disease): Code(s): I25.10 - Atherosclerotic heart disease of [place] coronary artery without angina pectoris Category: Medical Plan: CAD with recent onset symptoms of significant fatigue and recurrent symptoms chest discomfort radiating jaw which is atypical but could highly suggest underlying myocardial ischemia. He has new mild reduction in LV ejection fraction although within low normal range with new wall motion abnormality. High likelihood underlying graft closure. Unfortunately continues to smoke. He is recommended completely to stop smoking. I am concerned about ongoing symptoms suggestive of myocardial ischemia and would further suggest more invasive approach evaluate for coronary anatomy and bypass graft anatomy and further treatment if he has significant obstructive disease to pursue PCI therapy. I have advised him to start isosorbide mononitrate 30 mg daily. I have advised him to discontinue use of PDE5 inhibitor therapy. Continue amlodipine, aspirin, high-intensity statin therapy. Will add Zetia 10 mg to his regimen. Will recommend him to undergo cardiac catheterization in near future and explain details the risks, benefits, alternatives to therapy. He is advised to avoid sudden strenuous exertion. Advised to seek emergency care for rest discomfort. Will follow up in the clinic after cardiac catheterization. Thank you for allowing me to partake in his care Orders: Orders US carotid duplex BI 09/20/23 I25.10 - Atherosclerotic heart disease of [place] coronary artery without angina pectoris, R09.89 - Other specified symptoms and signs involving the circulatory and respiratory systems Cardiac Cath LT w PCI 1 Week I25.10 - Atherosclerotic heart disease of [place] coronary artery without angina pectoris RT home sleep study 09/20/23 R06.81 - Apnea, not elsewhere classified Medications: New ezetimibe 10 mg PO DAILY 30 tabs 3RF isosorbide mononitrate ER 30 mg PO DAILY 30 tabs 1RF nitroglycerin do not exceed 3 doses per episode 0.4 mg sublingual Q5M PRN 20 tabs 1RF chest pain Coding Level of Care Code New Pt Level 4 (54594) Diagnoses CAD (coronary artery disease) I25.10
[2023-09-20 15:24] VITALS: BP 130/74; PULSE 68; BMI 28.2
== END 2023-09-20 16:03 | disposition home or self-care (01) ==
PROVIDERS: PCP Internal Medicine; Visit Provider Internal Medicine Cardiovascular Disease
DX: I25.810 Atherosclerosis of coronary artery bypass graft(s) without angina pectoris (principal)
CPT/HCPCS: 99214

== ENCOUNTER → 2023-09-20 15:11 | Outpatient (BNVA) | payer OTHER, SELFPAY | PROVIDERS: PCP Internal Medicine; Visit Provider Internal Medicine Cardiovascular Disease | DX: I25.10 Atherosclerotic heart disease of native coronary artery without angina pectoris (principal) | CPT/HCPCS: 99212 ==

== ENCOUNTER 2023-09-28 11:22 | Outpatient (REF) | payer OTHER, SELFPAY ==
[2023-09-28 12:46] LABS: INTERNATIONAL NORM RATIO 0.9 (0.9-1.1); Prothrombin Time 10.4 SEC (11.1-13.3)
== END 2023-09-28 11:23 | disposition home or self-care (01) ==
LOC: HO.LAB 11:22
PROVIDERS: PCP Internal Medicine; Visit Provider Internal Medicine Cardiovascular Disease
DX: I25.10 Atherosclerotic heart disease of native coronary artery without angina pectoris (principal); I21.29 ST elevation (STEMI) myocardial infarction involving other sites
CPT/HCPCS: 36415; 85610

== ENCOUNTER → 2023-10-05 23:59 | Outpatient (BNV) | payer OTHER, SELFPAY | PROVIDERS: PCP Internal Medicine; Visit Provider Internal Medicine Cardiovascular Disease | DX: I20.89 Other forms of angina pectoris (principal); R93.1 Abnormal findings on diagnostic imaging of heart and coronary circulation | CPT/HCPCS: 92920; 92928; 92972; 92978; 93459; 99152 ==

== ENCOUNTER 2023-10-16 12:59 | Outpatient (AMB) | payer OTHER, SELFPAY ==
[2023-10-16 13:15] VITALS: BP 120/72; PULSE 66; BMI 27.8
--- NOTE | 2023-10-16 13:15 | MHC.OFFVIS ---
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 Required: No Allergies Penicillins Allergy (Mild, Verified 10/16/23 13:18) Vomiting Medication List - Last Reconciled 10/16/23 by Dasia Varela NP-C amlodipine 5 mg PO DAILY aspirin 81 mg PO DAILY duloxetine 120 mg PO DAILY empagliflozin (Jardiance) 10 mg PO DAILY ezetimibe 10 mg PO DAILY gabapentin 100 mg PO TID glycopyrrolate 2 mg PO DAILY isosorbide mononitrate ER 30 mg PO DAILY nitroglycerin 0.4 mg sublingual Q5M PRN rosuvastatin 40 mg PO DAILY ticagrelor 90 mg PO BID HPI HPI Follow up post cardiac cath: Details: Keo is a 63-year-old male with past medical history of hyperlipidemia, CAD, history of posterior SD, coronary artery bypass grafting 2020 who reported decreased activity tolerance on last visit and underwent cardiac catheterization for further evaluation. He had 2 stents in the left circumflex into the left main. Today he reports he has been feeling better since his catheterization procedure and stenting. His activity tolerance is coming back. He has been trying to walk more and tells me he is not interested in cardiac rehab. No chest discomfort at rest or with activity. No shortness of breath, PND, orthopnea or edema. No lightheadedness, presyncope, syncope, falls. Right groin cath site is feeling good. He does have numbness and tingling in his left arm which she says has been present for several weeks. He denies having mobility issues with his left arm. He plans to further discuss with his PCP. Taking all meds as directed. No bleeding issues reported. [facility] Medical History (Updated 10/16/23 @ 15:08 by KRAIG Arora) CAD (coronary artery disease) Diabetes Depression Patient denies medical problems Surgical History (Updated 10/16/23 @ 16:09 by KRAIG Arora) History of cardiac cath Hx of CABG Family History Father No problems noted. Mother CAD (coronary artery disease) Social History Alcohol intake: never Patient Tobacco Use Status: Never used Tobacco Substance Use Type: Marijuana Review of Systems Const All systems reviewed & are unremarkable except as noted in HPI and below ENT Denies dizziness Card Denies chest pain, Denies chest pain at rest, Denies chest pain with activity, Denies rapid heart rate, Denies pedal edema, Denies edema, Denies leg edema, Denies lightheadedness, Denies palpitations, Denies dyspnea, Denies dyspnea on exertion and Denies orthopnea Resp Denies cough, Denies dyspnea and Denies dyspnea on exertion GI Denies hematochezia and Denies change in stool character Musc Details: Right groin site feeling good, right leg no numbess or tingling. Having tingline and numbness in left arm - not new Denies abnormal gait, Denies limited range of motion, Denies muscle cramps, Denies muscle weakness, Denies numbness, Denies radiating pain into limb, Denies stiffness and Denies tingling Neuro Denies abnormal gait, Denies dizziness, Denies numbness and Denies tingling Endo Denies palpitations Physical Exam Vital Signs: Last Vital Signs Pulse 66 10/16/23 13:15 BP 120/72 10/16/23 13:15 BMI result Body Mass Index 27.8 Const General: cooperative, healthy appearing, comfortable and no acute distress Orientation/consciousness: patient oriented x3 Neck Neck: Yes normal visual inspection and Yes no JVD Resp Effort & Inspection: normal respiratory effort Auscultation: clear to auscultation bilaterally, no crackles, no rales, no rhonchi and no wheezes Cardio Jugular venous distension: no JVD Rate: regular rate Rhythm: regular rhythm Heart sounds: S1 normal heart sound present, S2 normal heart sound present, no murmurs and no rubs Neuro General: patient oriented x3 Extrem General: Yes normal to inspection and No no pedal edema Psych Appearance: grossly normal Mental Status: mental status grossly normal Speech and movement: Normal speech and movement present Assessment & Plan Assessment & Plan (1) CAD (coronary artery disease): Code(s): I25.10 - Atherosclerotic heart disease of [place] coronary artery without angina pectoris Category: Medical Plan: History of acute posterior SD 12/2020, cardiac catheterization at that time showed severe three-vessel CAD. He underwent coronary artery bypass grafting, four-vessel 01/12/2021. He had done well until recently when he noticed a decrease in his activity tolerance with fatigue. An echocardiogram was done on 09/03/2023 showing EF 50-55%, basal inferior and basal inferior lateral segment akinetic. This wall motion abnormality was new. He was seen in the Cardiology office for evaluation and then underwent cardiac catheterization on 10/05/2023 showing left main into the circumflex severe stenosis involving the ostium circumflex with 90% calcified stenosis. He had JOHN placed from the circumflex to the left main then another stent in the left main. His grafts were all patent. Today he reports improvement in his activity tolerance. Still has some fatigue but says it is getting better. He declines cardiac rehab. He is walking for exercise. No bleeding issues reported. Continue aspirin indefinitely. Continue Brilinta uninterrupted for 1 year post stents. Continue amlodipine, isosorbide as antianginals. Continue rosuvastatin and Zetia with ideal LDL goal less than 70. He is due for an updated lipid profile. Labs followed by his PCP. Cardiology follow-up 3 months, sooner if needed. (2) S/P cardiac catheterization: Comment: 10/05/2023, distal RCA occluded with patent vein graft to distal RCA, early onset PDA with ostial severe stenosis as well as proximal segment with stenosis involving the bifurcation, moderate size territory. Occluded OM1 with patent vein graft to OM1. Left main into the circumflex severe stenosis involving the ostium circumflex with 90% heavily calcified area of stenosis. OM is occluded and there is no backflow of blood from the vein graft into the [place] circumflex. Mid to distal LAD is 100% occluded with patent VANCE to LAD, patent vein graft to diagonal - 2 stents in the left main to left circumflex Code(s): Z98.890 - Other specified postprocedural states Category: Surgical Plan: As above (3) Hx of CABG: Comment: Four vessel coronary artery bypass grafting, December 2020 with VANCE to LAD, free radial to OM and free saphenous venous graft to diagonal as well as RPDA Code(s): Z95.1 - Presence of aortocoronary bypass graft Category: Surgical Plan: As above (4) HLD (hyperlipidemia): Code(s): E78.5 - Hyperlipidemia, unspecified Category: Medical Plan: [place] LDL goal less than 70. Labs done 12/08/2022 shows LDL 88. He is due for a updated lipid profile. Continue rosuvastatin and Zetia. Will forward this note to PCP Plan Time spent on chart review, documentation, interview and assessment Coding Level of Care Code Est Pt Level 4 (43141) Diagnoses CAD (coronary artery disease) I25.10 S/P cardiac catheterization Z98.890 Hx of CABG Z95.1 HLD (hyperlipidemia) E78.5 Time Spent (min) 28
== END 2023-10-16 13:55 | disposition home or self-care (01) ==
PROVIDERS: PCP Internal Medicine; Visit Provider Nurse Practitioner Family
DX: I25.10 Atherosclerotic heart disease of native coronary artery without angina pectoris (principal); Z98.890 Other specified postprocedural states; Z95.1 Presence of aortocoronary bypass graft; E78.5 Hyperlipidemia, unspecified
CPT/HCPCS: 99214

== ENCOUNTER → 2023-10-16 12:59 | Outpatient (BNVA) | payer OTHER, SELFPAY | PROVIDERS: PCP Internal Medicine; Visit Provider Nurse Practitioner Family | DX: I25.10 Atherosclerotic heart disease of native coronary artery without angina pectoris (principal); E78.5 Hyperlipidemia, unspecified; Z98.890 Other specified postprocedural states; Z95.1 Presence of aortocoronary bypass graft | CPT/HCPCS: 99212 ==

== ENCOUNTER 2024-01-21 13:24 | Outpatient (AMB) | payer OTHER, SELFPAY ==
--- NOTE | 2024-01-21 13:32 | A.OFFVIS_ITS ---
Vital Signs 01/21/24 13:34 Height 6 ft 4 in Weight 220 lb 7.396 oz BMI 26.8 BP 122/60 Blood Pressure Location Lt brachial Position Sitting Pulse 79 Pulse Source Monitor Intake Visit Reasons: 3 mth Allergies Penicillins Allergy (Mild, Verified 10/16/23 13:18) Vomiting Medication List - Last Reconciled 01/21/24 by Fady Marques MD amlodipine 5 mg PO DAILY aspirin 81 mg PO DAILY duloxetine 120 mg PO DAILY empagliflozin (Jardiance) 10 mg PO DAILY ezetimibe 10 mg PO DAILY gabapentin 100 mg PO TID PRN glycopyrrolate 2 mg PO DAILY isosorbide mononitrate ER 30 mg PO DAILY 90 days nitroglycerin 0.4 mg sublingual Q5M PRN rosuvastatin 40 mg PO DAILY ticagrelor 90 mg PO BID HPI Comments Details: Keo comes for follow-up. He said he feels well from his exercise tolerance perspective. He has been able to go back to golf since his stenting. He is taking all his medications. He was anticipating needing oral surgery in near future and the oral surgery was considering doing it on dual antiplatelet therapy. He currently has no bleeding issues. He said his main concern currently is lack of appetite. He said he gets appetite when he uses marijuana. Otherwise he has been losing weight. He denies any exertional chest pain. Takes all his medications. No recent lipid panel. [facility] Medical History CAD (coronary artery disease) Diabetes Depression Patient denies medical problems Surgical History S/P cardiac catheterization Stented coronary artery History of cardiac cath Hx of CABG Family History Father No problems noted. Mother CAD (coronary artery disease) Social History Alcohol intake: never Patient Tobacco Use Status: Never used Tobacco Substance Use Type: Marijuana Review of Systems Const Denies weakness ENT Denies dizziness Card Reports chest pain, Denies chest pain with activity, Denies syncope, Denies rapid heart rate, Denies pedal edema, Denies edema, Denies leg edema, Denies lightheadedness, Denies palpitations, Denies dyspnea, Denies dyspnea on exertion and Denies orthopnea Resp Denies cough, Denies dyspnea and Denies dyspnea on exertion GI Denies hematochezia and Denies change in stool character Musc Denies abnormal gait, Denies muscle cramps, Denies muscle weakness, Denies numbness, Denies radiating pain into limb and Denies tingling Neuro Denies abnormal gait, Denies dizziness, Denies syncope, Denies numbness, Denies tingling and Denies weakness Endo Denies palpitations Physical Exam Vital Signs: Last Vital Signs Pulse 79 01/21/24 13:34 BP 122/60 01/21/24 13:34 BMI result Body Mass Index 26.8 Const General: cooperative, healthy appearing, comfortable and no acute distress Orientation/consciousness: patient oriented x3 Neck Neck: Yes normal visual inspection and Yes no JVD Resp Effort & Inspection: normal respiratory effort Auscultation: clear to auscultation bilaterally, no crackles, no rales, no rhonchi and no wheezes Cardio Jugular venous distension: no JVD Rate: regular rate Rhythm: regular rhythm Heart sounds: S1 normal heart sound present, S2 normal heart sound present, no murmurs and no rubs Neuro General: patient oriented x3 Extrem General: Yes normal to inspection and No no pedal edema Psych Appearance: grossly normal Mental Status: mental status grossly normal Speech and movement: Normal speech and movement present Office Procedures EKG Details: EKG shows normal sinus rhythm with incomplete right bundle-branch block with Q- waves in lead 3 [id number], Complete Assessment & Plan Assessment & Plan (1) CAD (coronary artery disease): Code(s): I25.10 - Atherosclerotic heart disease of [place] coronary artery without angina pectoris Category: Medical Plan: Premature atherosclerosis with diffuse and significant coronary artery disease with prior coronary artery bypass grafting in 2010 with patent grafts on recent cardiac catheterization but requiring stenting from left main to circumflex artery for ongoing symptoms. He is exercise capacity is improved and his exercise tolerance has improved. We advised to continue participate in regular physical activity. Importance of uninterrupted dual antiplatelet therapy for a year was discussed to reduce risk of stent thrombosis. I would avoid doing oral surgery on dual antiplatelet therapy as bleeding complication would lead to withdrawal of both drugs. Continue dual antiplatelet therapy with high- intensity statin therapy as well as ezetimibe therapy. Target goal LDL less than 70 mg/dL. Advised lipid panel in near future. Continue aggressive blood pressure control which is currently well optimized. Continue Jardiance therapy, consider instead of Jardiance to use GLP 1 antagonist. Will follow up in the clinic in 6 months time, sooner p.r.n.. Thank you for allowing me to partake in his care Orders: Orders Lipid Panel Today I25.10 - Atherosclerotic heart disease of [place] coronary artery without angina pectoris Coding Level of Care Code Est Pt Level 4 (46677) Complex EM visit Add On G2211 Diagnoses CAD (coronary artery disease) I25.10 CPT Codes EKG - CPT: 50749-[id number], Complete ([id number])
[2024-01-21 13:34] VITALS: BP 122/60; PULSE 79; BMI 26.8
--- OUTSIDE RECORDS SUMMARY | 2024-01-23 15:44 | XMS_ITS ---
Author Organization [facility] Address [address] [place] [address] Care Team Providers Care Supervisor Cigar Making Machine Name Role Phone Travis García MD Primary Care Provider Unavaila Mati Bobo Jr Unavailable [phone] REASON FOR VISIT colon screening Encounters Encounter Location Date Provider Diagnosis [facility] Outpatient [address] [place], [place] [id number] 12/08/2022 Mati Houser Jr PLAN OF TREATMENT No Information
--- OUTSIDE RECORDS SUMMARY | 2024-01-23 15:44 | XMS_ITS ---
Author Organization [facility] Address [address] [place] [address] Care Team Providers Care Ground Control Approach Technician Name Role Phone Travis García MD Primary Care Provider Mati Belle Jr Unavailable REASON FOR VISIT has to cancel his procedure Encounters Encounter Location Date Provider Diagnosis [facility] [address] [place] [address] 12/04/2022 Mati Houser Jr PLAN OF TREATMENT No Information
--- OUTSIDE RECORDS SUMMARY | 2024-01-23 15:45 | XMS_ITS ---
Author Organization [facility] Address [address] [place] [address] Care Team Providers Care Spearer Name Role Phone Travis García MD Primary Care Provider Unavaila Mati Bobo Jr Unavailable [phone] REASON FOR VISIT colon screening Encounters Encounter Location Date Provider Diagnosis [facility] Outpatient [address] [place], [place] [id number] 10/06/2022 Mati Houser Jr PLAN OF TREATMENT No Information
--- OUTSIDE RECORDS SUMMARY | 2024-01-23 15:45 | XMS_ITS | Patient Health Record ---
Author Organization [facility] Address [address] [place] [address] Care Team Providers Care Senior Project Manager Engineering Name Role Phone Travis García MD Primary Care Provider Mati Belle Jr Unavailable ALLERGIES No Known Allergies REASON FOR REFERRAL No Information MEDICATIONS Medication SIG (Take, Route, Frequency, Duration) Notes Start Date End Date Status Jardiance 10 MG TAKE 1 TABLET BY AURA TH EVERY MORNING Oral for 30 Active Pregabalin 100 MG Oral for 90 Active MiraLax (colon prep) 17 GM/SCOOP mixed with Gatorade or Crystal Light Orally begin at 5:00 p.m. the day before the procedure for 1 day 05/31/2022 Active Glycopyrrolate 1 MG Oral for 90 Active Rosuvastatin Calcium 40 MG Oral for 90 Active DULoxetine HCl 60 MG TAKE 2 CAPSULES BY MOUTH EVERY DAY Oral for 90 Active Gabapentin 100 MG Oral for 20 Active Metoprolol Tartrate 25 MG TAKE 1/2 TABLE T BY MOUTH TWICE A DAY Oral for 90 Active amLODIPine Besylate 10 MG Oral for 90 Active Atorvastatin Calcium 80 MG TAKE 1 TABLET BY MOUTH EVERYDAY AT BEDTIME Oral for 90 Active IMMUNIZATIONS Vaccine Route Administration Date Status Comme nts Influenza Unknown 11/29/2021 Administered SOCIAL HISTORY Tobacco Use: Social History Observation Description Date Details (start date - stop date) Never Smoker NA - NA Sex Assigned At : Social History Observation Description Sex Assigned At Unknown Tobacco Use/Smoking Question Answer Notes Patient is a nonsmoker Alcohol Screen Question Answer Notes Did you have a drink containing alcohol in the p ast year? No Points 0 Interpretation Negative PROBLEMS Problem Type ICD Code Onset Dates Problem Status W/U Status Risk SNOMED Code Notes Problem Colon cancer screening (Z12.11) Active confirmed 084310003 Problem Long-term use of aspirin therapy (Z79.82) Active confirmed 361240427 Problem Encounter for other preprocedural examination (Z01.818) Active confirmed 483962850 PLAN OF TREATMENT Future Test Test Name Order Date COLONOSCOPY 05/31/2022 Insurance Providers Payer Name Payer Address Payer Phone Subscriber Number Group Number Insured Name Patient Relationship to Insured Coverage Start Date Coverage End Date [facility] [address] [id number] RELL HERRING Self - patient is the insured MEDICAL (GENERAL) HISTORY Medical History History ICD Code Diabetes mellitus type 2 NSTEMI 01/02 BPH Hyperlipidemia Depression/anxiety Surgical History Surgery Date(Month/Year) CABG x4 02/01 hip replacement 2020 quadriceps reconstruction 2005
== END 2024-01-21 14:03 | disposition home or self-care (01) ==
PROVIDERS: PCP Internal Medicine; Visit Provider Internal Medicine Cardiovascular Disease
DX: I25.10 Atherosclerotic heart disease of native coronary artery without angina pectoris (principal)
CPT/HCPCS: 93010; 99214; G2211

== ENCOUNTER → 2024-01-21 13:24 | Outpatient (BNVA) | payer OTHER, SELFPAY | PROVIDERS: PCP Internal Medicine; Visit Provider Internal Medicine Cardiovascular Disease | DX: I25.10 Atherosclerotic heart disease of native coronary artery without angina pectoris (principal); I45.19 Other right bundle-branch block; R94.31 Abnormal electrocardiogram [ECG] [EKG] | CPT/HCPCS: 93005; 99212 ==

== ENCOUNTER 2024-01-22 09:10 | Outpatient (REF) | payer OTHER, SELFPAY ==
[2024-01-22 11:42] LABS: Cholesterol 118 mg/dL (<200); HDL Cholesterol 61 mg/dL (>40)
[2024-01-22 12:34] LABS: LDL Cholesterol Calculated 44 mg/dL (<100); Triglycerides 68 mg/dL (<150)
== END 2024-01-22 09:11 | disposition home or self-care (01) ==
LOC: HO.LAB 09:10
PROVIDERS: PCP Internal Medicine; Visit Provider Internal Medicine Cardiovascular Disease
DX: I25.10 Atherosclerotic heart disease of native coronary artery without angina pectoris (principal)
CPT/HCPCS: 36415; 80061

== ENCOUNTER 2024-03-19 18:36 | Outpatient (REF) | payer OTHER, SELFPAY ==
[2024-03-19 19:25] LABS: Influenza A PCR NEGATIVE (Negative); Influenza B PCR NEGATIVE (Negative); Resp Syncy Virus RNA Qual PCR NEGATIVE (Negative); SARS COV2 PCR INHOUSE NEGATIVE (Negative)
== END 2024-03-19 18:37 | disposition home or self-care (01) ==
LOC: HO.LNP 18:36
PROVIDERS: Visit Provider Internal Medicine
DX: R05.9 Cough, unspecified (principal)
CPT/HCPCS: 0241U

== ENCOUNTER 2024-07-16 14:14 | Outpatient (AMB) | payer OTHER, SELFPAY ==
--- OUTSIDE RECORDS SUMMARY | 2024-07-16 14:17 | XMS_ITS | Patient Health Record ---
Author Organization [facility] Address [address] [place] [address] Care Team Providers Care Strategic Partner Development Manager Name Role Phone Travis García MD Primary Care Provider Mati Belle Jr Unavailable [phone] Allergies No Known Allergies Reason For Referral No Information Medications Medication SIG (Take, Route, Frequency, Duration) Notes [...] EVERYDAY AT BEDTIME Oral for 90 Active Immunizations Vaccine Route Administration Date Status Comme nts Influenza Unknown 11/29/2021 Administered Social History Tobacco Use: Social History Observation Description Date Details (start date - stop date) Never Smoker NA - NA Tobacco Use/Smoking Question Answer Notes Patient is a nonsmoker Alcohol Screen Question Answer Notes Did you have a drink containing alcohol in the p ast year? No Points 0 Interpretation Negative Problems Problem Type SNOMED Code ICD Code Onset Dates Problem Status W/U Status Risk Notes Problem 583520954 Colon cancer screening (Z12.11) Active confirmed Problem 727869026 Encounter for other preprocedural examination (Z01.818) Active confirmed Problem 695350463 Long-term use of aspirin therapy (Z79.82) Active confirmed Plan Of Treatment Future Test Test Name Order Date COLONOSCOPY 05/31/2022 Insurance Providers Payer Name Payer Address Payer Phone Subscriber Number Group Number Insured Name Patient Relationship to Insured Coverage Start Date Coverage End Date [facility] [address] [place] [address] [id number] RELL HERRING Self - patient is the insured Medical (General) History Medical History History ICD Code Diabetes mellitus type 2 NSTEMI 01/02 BPH Hyperlipidemia Depression/anxiety Surgical History Surgery Date(Month/Year) CABG x4 02/01 hip replacement 2020 quadriceps reconstruction 2005
[2024-07-16 14:19] VITALS: BP 122/70; PULSE 67; TEMP 36.2; O2SAT 97; BMI 27.4
--- NOTE | 2024-07-16 14:19 | MHC.PC.OV ---
Vital Signs 07/16/24 14:19 Height 6 ft 4 in Weight 225 lb BMI 27.4 BP 122/70 Blood Pressure Location Lt brachial Position Sitting Pulse 67 Pulse Source Pulse Oximeter Temp 97.1 F Temp Source Axillary Pulse Oximetry (%) 97 Oxygen Delivery Method Room Air Intake Visit Reasons: Routine - see comments Braiding Machine Operator Required: No Accompanied by: Self / Same As Patient Allergies Penicillins Allergy (Mild, Verified 07/16/24 14:52) Vomiting Tobacco use date assessed: 07/16/24 Fall risk assessment: No Falls in past year Last assessed Fall Risk: 07/16/24 Dental Screening Dental Screen Date: 07/16/24 Did you have a dental visit in the last 12 months?: Yes Did you have a dental problem in the last 6 months where you did not have access to dental care?: No [facility] Medical History CAD (coronary artery disease) Diabetes Depression Patient denies medical problems Surgical History S/P cardiac catheterization Stented coronary artery History of cardiac cath Hx of CABG Family History Father No problems noted. Mother CAD (coronary artery disease) Social History Housing: House Alcohol intake: never Patient Tobacco Use Status: Never used Tobacco e-Cigarette/Vaping Use: Never Used Substance Use Type: Marijuana service: No Current occupational status: employed Cognitive needs: No Hearing needs: No Vision needs: Yes (rx glasses) Questionnaire PHQ-9 Over the last 2 weeks, how often have you been bothered by any of the following problems? 1. Little interest or pleasure in doing things: not at all 2. Feeling down, depressed, or hopeless: several days (little stress) 3. Trouble falling or staying asleep, or sleeping too much: not at all 4. Feeling tired or having little energy: not at all 5. Poor appetite or overeating: not at all 6. Feeling bad about yourself - or that you are a failure or have let yourself or your family down: not at all 7. Trouble concentrating on things, such as reading the newspaper or watching television: not at all 8. Moving or speaking so slowly that other people could have noticed. Or the opposite - being so fidgety or restless that you have been moving around a lot more than usual: not at all 9. Thoughts that you would be better off or of hurting yourself in some way: not at all Total score: 1 Source: Developed by Drs. Oscar Orellana, Leslie Craig, Van Marquez and colleagues, with an educational rachel from [employer]. Thrive Questionnaire Date Thrive assessed: 07/16/24 I am a: Patient Within the past 12 months, did the food you bought not last and you didn't have the money to get more?: Never true Within the past 12 months, did you worry whether your food would run out before you got money to buy more?: Never true Do you have trouble paying for medicines?: No Do you have trouble getting transportation to medical appointments?: No Do you have trouble paying your heating and electricity bill?: No Do you have trouble taking care of your child, family member or friend?: No Do you have trouble with day-to-day activities such as bathing, preparing meals, shopping, managing finances, etc.?: No Are you currently unemployed and looking for a job?: No Are you interested in more education?: No THRIVE Score: 0 AUDIT C Alcohol Use Questionnaire (AUDIT-C) 1. How often do you have a drink containing alcohol?: Never 3. How often do you have six or more drinks on one occasion?: Never Total Score: 0 JESSICA-7 AMB Questionnaire JESSICA-7 Date JESSICA - 7 assessed: 07/16/24 Feeling nervous, anxious, or on edge: 1 = Several days Not being able to stop or control worryin = Not at all Worrying too much about different things: 0 = Not at all Trouble relaxin = Not at all Being so restless that it is hard to sit still: 0 = Not at all Becoming easily annoyed or irritable: 0 = Not at all Feeling afraid as if something awful might happen: 0 = Not at all Total JESSICA-7 score (0-4 normal; 5-9 mild; 10-14 moderate; 15-21 severe): 1 Source: Developed by Drs. Oscar Orellana, Leslie Craig, Van Marquez and colleagues, with an educational rachel from [employer]. Physical exam (Primary Care) Vital Signs: Last Vital Signs Temp 97.1 F 07/16/24 14:19 Pulse 67 07/16/24 14:19 BP 122/70 07/16/24 14:19 Pulse Ox 97 07/16/24 14:19 Oxygen Delivery Method Room Air 07/16/24 14:19 BMI result Body Mass Index 27.4 Tobacco/Smoking Status: Tobacco use Status Tobacco use date assessed 07/16/24 07/16/24 14:21 Patient Tobacco Use Status Never used Tobacco 07/16/24 14:21 e-Cigarette/Vaping Use Never Used 07/16/24 14:21 PHQ-9: PHQ-9 Score PHQ-9: Total score 1 07/16/24 14:33 Thrive Assessment: Date of Thrive Assessment Date Thrive assessed 07/16/24 07/16/24 14:21 Coding Level of Care Code New Pt Level 4 (50009) Complex EM visit Add On G2211 Diagnoses Diabetes E11.9 Acute posterior myocardial infarction I21.29 Assessment & Plan Assessment & Plan (1) Diabetes: Code(s): E11.9 - Type 2 diabetes mellitus without complications Category: Medical Plan: BW has been ordered. Will adjust medications accordingly (2) Acute posterior myocardial infarction: Code(s): I21.29 - ST elevation (STEMI) myocardial infarction involving other sites Category: Medical Plan: Condition is stable Plan History of Present Illness - The patient is a 63 year old male presenting with numbness and concerns about coronary artery disease. - Left-sided numbness became notable following quadruple bypass surgery in 2020, with persistence linked to circulatory issues. - Sleep disturbances noted with additional symptoms of left arm numbness in May 2021 led to two coronary stents placement in September 2021. - Past history of hyperhidrosis has diminished over five to six years, previously managed with occasional medication. - Potential diabetes mellitus presents with occasional episodes and appetite reduction attributed to polypharmacy or underlying disease. - Marijuana use assists in appetite induction, especially for meal consumption. - Gabapentin is being used to manage symptoms. 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 - He engages in recreational marijuana use to stimulate appetite and ensure meal consumption. - Exercises through golfing, typically walking nine holes while carrying a golf bag. - Resides near the medical facility, allowing convenient access to appointments. - Maintains good manners and stays socially active with friends and professional circles. Review of Systems - Neurological: Reports numbness on the left side. - Cardiovascular: History of coronary artery disease, status post quadruple-bypass, and stent placement. - Endocrine: Reports concerns about diabetes mellitus; potential loss of appetite. - Musculoskeletal: Reports excellent mobility. - Dermatological: Reports history of hyperhidrosis, currently diminished. - Psychiatric: Reports intermittent marijuana use aiding appetite. - Gastrointestinal: Denies consistent weight loss; mentions marijuana use for nutritional management. Physical Exam General: Cooperative and healthy appearing Nutritional Appearance: Well nourished Orientation/consciousness: Patient oriented x3 Limitations: No limitations Head: Normal to inspection General: Appearance normal, both eyes and all related structures Neck: Normal visual inspection Chest: Normal palpation of entire chest wall Respiratory: N ormal respiratory effort Neurology: Patient oriented x3, reports numbness on the left side. Results - Labs: Planned blood work including fasting to check A1c. - Tests/Diagnostics: Colonoscopy referral; discussion about Cologuard vs. colonoscopy preference. Plan 1. Numbness - Plan blood work for fasting glucose. - Refer to pump house operator for evaluation. 2. Coronary Artery Disease - Follow up with pump house operator planned. 3. Appetite Loss - Assess potential effects of medications. - Discuss impacts of marijuana use. 4. Hyperhidrosis - Continue management as needed. 5. Diabetes Mellitus, Possible - Fasting glucose and A1c to be checked. - Educate on managing carbohydrate intake. 6. Medical Management And Consultations For Dental Implants - Consult current specialists for care. 7. Marijuana Use - Discuss appropriateness related to symptom management. Discussion Notes During this visit, I reviewed the patient's symptom of numbness, which may be related to diabetes or coronary artery disease. We discussed future fasting blood work to determine the presence of diabetes, which may be contributing to or exacerbating his symptoms. He agreed to see his pump house operator for further management of his coronary artery disease, post-stent considerations, and pain management related to subsequent dental implant procedures. The patient shared his marijuana use for appetite, and we discussed its implications on his health, encouraging moderated consumption. For his colonoscopy, consent was given to work with Dr. Houser upon referral, planning around other obligations. We elaborated on each step: obtaining blood work, scheduling cardiac follow-up, appropriate doctors for dental management, and appetite regulation strategies. Patient Instructions - Fast overnight for blood work and seek lab on a day without other pressing obligations. - Arrange and attend follow-up appointment with pump house operator as planned. - Consider reducing marijuana use and monitor how it affects your symptoms. - Stay vigilant on your food intake and monitor any changes with appetite. - Coordinate upcoming colonoscopy with Dr. Houser through planned referral. - Report any exacerbations of symptoms or concerns promptly. Orders: Orders Lipid Panel Today E11.9 - Type 2 diabetes mellitus without complications, I21.29 - ST elevation (STEMI) myocardial infarction involving other sites Thyroid Stimulating Hormone Today E11.9 - Type 2 diabetes mellitus without complications, I21.29 - ST elevation (STEMI) myocardial infarction involving other sites UA and rflx microscopic Today E11.9 - Type 2 diabetes mellitus without complications, I21.29 - ST elevation (STEMI) myocardial infarction involving other sites Prostate Specific Antigen Scr Today E11.9 - Type 2 diabetes mellitus without complications, I21.29 - ST elevation (STEMI) myocardial infarction involving other sites Hemoglobin A1c Today E11.9 - Type 2 diabetes mellitus without complications, I21.29 - ST elevation (STEMI) myocardial infarction involving other sites Liver Panel Today E11.9 - Type 2 diabetes mellitus without complications, I21.29 - ST elevation (STEMI) myocardial infarction involving other sites Basic Metabolic Panel Today E11.9 - Type 2 diabetes mellitus without complications, I21.29 - ST elevation (STEMI) myocardial infarction involving other sites Complete Blood Count no Diff Today E11.9 - Type 2 diabetes mellitus without complications, I21.29 - ST elevation (STEMI) myocardial infarction involving other sites Microalbumin, Random (w Creat) Today E11.9 - Type 2 diabetes mellitus without complications, I21.29 - ST elevation (STEMI) myocardial infarction involving other sites Referrals Gastroenterology Referral Z12.11 - Encounter for screening for malignant neoplasm of colon
== END 2024-07-16 14:52 | disposition home or self-care (01) ==
LOC: HO.HMCHD 14:14
PROVIDERS: PCP Internal Medicine; Visit Provider Internal Medicine
DX: E11.9 Type 2 diabetes mellitus without complications (principal); I21.29 ST elevation (STEMI) myocardial infarction involving other sites

== ENCOUNTER → 2024-07-16 14:14 | Outpatient (BNVA) | payer OTHER, SELFPAY | PROVIDERS: PCP Internal Medicine; Visit Provider Internal Medicine | DX: E11.9 Type 2 diabetes mellitus without complications (principal); I21.29 ST elevation (STEMI) myocardial infarction involving other sites | CPT/HCPCS: 99202 ==

== ENCOUNTER 2024-07-22 06:02 | Outpatient (REF) | payer OTHER, SELFPAY ==
--- OUTSIDE RECORDS SUMMARY | 2024-07-22 06:05 | XMS_ITS | Patient Health Record ---
Author Organization [facility] Address [address] [place] [address] Care Team Providers Care Mental Hygienist Name Role Phone ALISTAIR MCKEON Primary Care Provider Mati Holder Jr Unavailable [phone] Allergies No Known Allergies Reason For Referral [...] Problem Status W/U Status Risk Notes Problem 796849046 Colon cancer screening (Z12.11) Active confirmed Problem 981027201 Encounter for other preprocedural examination (Z01.818) Active confirmed Problem 387117262 Long-term use of aspirin therapy (Z79.82) Active confirmed Plan Of Treatment Future Test Test Name Order Date COLONOSCOPY 05/31/2022 Insurance Providers Payer Name Payer Address Payer Phone Subscriber Number Group Number Insured Name Patient Relationship to Insured Coverage Start Date Coverage End Date [facility] [address] [place] [address] [id number] RELL HERRING Self - patient is the insured Medical (General) History Medical History History ICD Code Diabetes mellitus type 2 NSTEMI 01/02 BPH Hyperlipidemia Depression/anxiety Surgical History Surgery Date(Month/Year) CABG x4 02/01 hip replacement 2020 quadriceps reconstruction 2005
[2024-07-22 07:17] LABS: Hematocrit 47.2 % (42.0-52.0); Hemoglobin 15.7 g/dl (14.0-18.0); Mean Corpuscular HGB Conc 33.3 g/dl (31.0-36.0); Mean Corpuscular Hemoglobin 29.5 pg (27.0-33.0); Mean Corpuscular Volume 88.7 fL (80.0-98.0); Mean Platelet Volume 9.7 fL (9.4-12.4); Platelet Count 217 X10*3/uL (160-400); Red Blood Count 5.32 X10*6/uL (4.60-5.80); Red Cell Distribution Width 13.5 % (11.0-16.0); White Blood Count 4.9 X10*3/uL (4.8-10.8)
[2024-07-22 07:25] LABS: Estimated Average Glucose 117 mg/dL; Hemoglobin A1c % 5.7 % (<6.0)
[2024-07-22 07:49] LABS: Alanine Aminotransferase 44 U/L (0-40); Albumin Level 4.6 g/dL (3.5-5.0); Alkaline Phosphatase 58 U/L (39-117); Anion Gap 11 (12-20); Aspartate Amino Transferase 37 U/L (5-37); Bilirubin Direct 0.2 mg/dL (0.0-0.5); Bilirubin Total 0.5 mg/dL (0.0-1.0); Blood Urea Nitrogen 19 mg/dL (9-16); Calcium 9.6 mg/dL (8.4-10.2); Carbon Dioxide 24 mmol/L (22-29); Chloride 108 mmol/L (96-108); Cholesterol 141 mg/dL (<200); Estimated Glomerular Filt Rate > 60; Glucose Random 102 mg/dL (60-115); HDL Cholesterol 61 mg/dL (>40); LDL Cholesterol Calculated 66 mg/dL (<100); Potassium 4.4 mmol/L (3.3-5.1); Sodium 139 mmol/L (135-145); Triglycerides 72 mg/dL (<150)
[2024-07-22 08:08] LABS: Thyroid Stimulating Hormone 2.02 uIU/mL (0.32-4.0)
== END 2024-07-22 06:03 | disposition home or self-care (01) ==
LOC: HO.LAB 06:02
PROVIDERS: PCP Internal Medicine; Visit Provider Internal Medicine
DX: I21.29 ST elevation (STEMI) myocardial infarction involving other sites (principal); E11.9 Type 2 diabetes mellitus without complications
CPT/HCPCS: 36415; 80048; 80061; 80076; 83036; 84153; 84443; 85027

== ENCOUNTER 2024-08-11 14:06 | Outpatient (AMB) | payer OTHER, SELFPAY ==
--- NOTE | 2024-08-11 14:13 | MHC.OFFVIS ---
Vital Signs 08/11/24 14:14 Height 6 ft 4 in Weight 221 lb 12.56 oz BMI 27.0 BP 120/80 Blood Pressure Location Lt brachial Position Sitting Pulse 70 Pulse Source Monitor Intake Visit Reasons: 6 mth f/up Allergies Penicillins Allergy (Mild, Verified 08/11/24 14:18) Vomiting Medication List - Last Reconciled 08/11/24 by Dasia Varela UPHOLSTERY COVERS INSPECTOR-C amlodipine 5 mg PO DAILY aspirin 81 mg PO DAILY duloxetine 120 mg (2 x 60 mg) PO DAILY empagliflozin (Jardiance) 10 mg PO DAILY ezetimibe 10 mg PO DAILY gabapentin 100 mg PO TID PRN glycopyrrolate 2 mg PO DAILY isosorbide mononitrate ER 30 mg PO DAILY 90 days nitroglycerin 0.4 mg sublingual Q5M PRN rosuvastatin 40 mg PO DAILY ticagrelor 90 mg PO BID HPI HPI 6 mth f/up: Details: Keo is a 63-year-old male with past medical history of hyperlipidemia, CAD, history of posterior GA, coronary artery bypass grafting 2020, cardiac catheterization 10/05/2023 for decreased activity tolerance and 2 stents placed, in the left circumflex into the left main who now presents for follow-up. Today he reports he has recently has notice some increasing fatigue. He also gets random tingling in his left arm which causes him concern. He has been getting some random episodes of diaphoresis which he says is atypical for him. He has no chest discomfort at rest or with activity. No shortness of breath, PND, orthopnea or edema. No lightheadedness, presyncope, syncope, falls. No mobility issues of his extremities. He was able to go golfing today, 5 holes and walk the course which he says he tolerated well but he is noticing increased fatigue with activity. He uses marijuana regularly to help sleep. Taking all meds as directed. [facility] Medical History CAD (coronary artery disease) Diabetes Depression Patient denies medical problems Surgical History S/P cardiac catheterization Stented coronary artery History of cardiac cath Hx of CABG Family History Father No problems noted. Mother CAD (coronary artery disease) Social History Housing: House Alcohol intake: never Patient Tobacco Use Status: Never used Tobacco e-Cigarette/Vaping Use: Never Used Substance Use Type: Marijuana service: No Current occupational status: employed Cognitive needs: No Hearing needs: No Vision needs: Yes (rx glasses) Review of Systems Const Details: sweating without exercise All systems reviewed & are unremarkable except as noted in HPI and below Reports fatigue ENT Denies dizziness Card Denies chest pain, Denies chest pain at rest, Denies chest pain with activity, Denies rapid heart rate, Denies pedal edema, Denies edema, Denies leg edema, Denies lightheadedness, Denies palpitations, Denies dyspnea, Denies dyspnea on exertion and Denies orthopnea Resp Denies cough, Denies dyspnea and Denies dyspnea on exertion GI Denies hematochezia and Denies change in stool character Musc Details: tingling in left arm Denies abnormal gait, Reports limited range of motion, Denies muscle cramps, Denies muscle weakness, Denies numbness, Denies radiating pain into limb, Denies stiffness and Denies tingling Neuro Denies abnormal gait, Denies dizziness, Denies numbness and Denies tingling Endo Reports fatigue and Denies palpitations Physical Exam Vital Signs: Last Vital Signs Pulse 70 08/11/24 14:14 BP 120/80 08/11/24 14:14 BMI result Body Mass Index 27.0 Const General: cooperative, healthy appearing, comfortable and no acute distress Orientation/consciousness: patient oriented x3 Neck Neck: Yes normal visual inspection and Yes no JVD Resp Effort & Inspection: normal respiratory effort Auscultation: clear to auscultation bilaterally, no crackles, no rales, no rhonchi and no wheezes Cardio Jugular venous distension: no JVD Rate: regular rate Rhythm: regular rhythm Heart sounds: S1 normal heart sound present, S2 normal heart sound present, no murmurs and no rubs Neuro General: patient oriented x3 Extrem General: Yes normal to inspection and No no pedal edema Psych Appearance: grossly normal Mental Status: mental status grossly normal Speech and movement: Normal speech and movement present Office Procedures EKG Details: Today, read by me, normal sinus rhythm, incomplete right bundle branch block, can not rule out prior inferior infarct, rate 70, QTC 449 millisecond [id number], Complete Assessment & Plan Assessment & Plan (1) CAD (coronary artery disease): Code(s): I25.10 - Atherosclerotic heart disease of [place] coronary artery without angina pectoris Category: Medical Plan: History of acute posterior GA 12/2020, cardiac catheterization at that time showed severe three-vessel CAD. He underwent coronary artery bypass grafting, four-vessel 01/12/2021. He had done well until recently when he noticed a decrease in his activity tolerance with fatigue. An echocardiogram was done on 09/03/2023 showing EF 50-55%, basal inferior and basal inferior lateral segment akinetic. Cardiac catheterization on 10/05/2023 showing left main into the circumflex severe stenosis involving the ostium circumflex with 90% calcified stenosis, JOHN placed from the circumflex to the left main then another stent in the left main. His grafts were all patent. He had done well but now is reporting increasing fatigue, random diaphoresis and left arm tingling. EKG today showing sinus rhythm with incomplete right bundle branch block, rate 70. Will update echocardiogram and nuclear stress test. Plan to call him with test results. Continue aspirin indefinitely. Continue Brilinta uninterrupted for 1 year post stents. Continue amlodipine, isosorbide as antianginals. Continue rosuvastatin and Zetia with ideal LDL goal less than 70. Cardiology office follow-up 6 months, sooner if needed. (2) Hx of CABG: Comment: Four vessel coronary artery bypass grafting, December 2020 with VANCE to LAD, free radial to OM and free saphenous venous graft to diagonal as well as RPDA Code(s): Z95.1 - Presence of aortocoronary bypass graft Category: Surgical Plan: As above (3) HLD (hyperlipidemia): Code(s): E78.5 - Hyperlipidemia, unspecified Category: Medical Plan: Mosier LDL goal less than 70. Labs done 07/22/2024 showed LDL 66. Continue rosuvastatin and Zetia. (4) Fatigue: Code(s): R53.83 - Other fatigue Category: Medical Plan: As above. Plan Time spent on chart review, documentation, interview and assessment Orders: Orders CA echo transthoracic complete 08/11/24 I25.10 - Atherosclerotic heart disease of [place] coronary artery without angina pectoris, R53.83 - Other fatigue, Z95.1 - Presence of aortocoronary bypass graft CA stress test 08/11/24 I25.10 - Atherosclerotic heart disease of [place] coronary artery without angina pectoris, R53.83 - Other fatigue, Z95.1 - Presence of aortocoronary bypass graft NM cardiolite stress test 08/11/24 I25.10 - Atherosclerotic heart disease of [place] coronary artery without angina pectoris, R53.83 - Other fatigue, Z95.1 - Presence of aortocoronary bypass graft Coding Level of Care Code Est Pt Level 4 (68001) Complex EM visit Add On G2211 Diagnoses CAD (coronary artery disease) I25.10 Hx of CABG Z95.1 HLD (hyperlipidemia) E78.5 Fatigue R53.83 CPT Codes EKG - CPT: [id number], Complete ([id number]) Time Spent (min) 36
[2024-08-11 14:14] VITALS: BP 120/80; PULSE 70; BMI 27.0
--- OUTSIDE RECORDS SUMMARY | 2024-08-11 14:42 | XMS_ITS | Patient Health Record ---
Author Organization [facility] Address [address] [place] [address] Care Team Providers Care Senior Accounting Clerk Name Role Phone ALISTAIR MCKEON Primary Care Provider Mati Holder Jr Unavailable Allergies No Known Allergies Reason For Referral [...] Problem Status W/U Status Risk Notes Problem [id number] Colon cancer screening (Z12.11) Active confirmed Problem 652226103 Encounter for other preprocedural examination (Z01.818) Active confirmed Problem 609743065 Long-term use of aspirin therapy (Z79.82) Active confirmed Plan Of Treatment Future Test Test Name Order Date COLONOSCOPY 05/31/2022 Next Appt Details Provider Name:Mati moreno Jr, 10/15/2024 11:20:00 AM, [address] [facility], [address], [place], [address], Insurance Providers Payer Name Payer Address Payer Phone Subscriber Number Group Number Insured Name Patient Relationship to Insured Coverage Start Date Coverage End Date [facility] [address] [place] [address] [id number] RELL HERRING Self - patient is the insured Medical (General) History Medical History History ICD Code Diabetes mellitus type 2 NSTEMI 01/02 BPH Hyperlipidemia Depression/anxiety Surgical History Surgery Date(Month/Year) CABG x4 02/01 hip replacement 2020 quadriceps reconstruction 2005
== END 2024-08-11 15:06 | disposition home or self-care (01) ==
LOC: HO.HCS 14:07
PROVIDERS: PCP Internal Medicine; Visit Provider Nurse Practitioner Family
DX: I25.10 Atherosclerotic heart disease of native coronary artery without angina pectoris (principal); Z95.1 Presence of aortocoronary bypass graft; E78.5 Hyperlipidemia, unspecified; R53.83 Other fatigue
CPT/HCPCS: 99214

== ENCOUNTER → 2024-08-11 14:06 | Outpatient (BNVA) | payer OTHER, SELFPAY | PROVIDERS: PCP Internal Medicine; Visit Provider Nurse Practitioner Family | DX: I25.10 Atherosclerotic heart disease of native coronary artery without angina pectoris (principal); E78.5 Hyperlipidemia, unspecified; Z95.1 Presence of aortocoronary bypass graft; R53.83 Other fatigue | CPT/HCPCS: 93005; 99212 ==

== ENCOUNTER 2024-09-01 14:43 | Outpatient (AMB) | payer OTHER, SELFPAY ==
--- NOTE | 2024-09-01 13:50 | A.OFFPC_ITS ---
Vital Signs 09/01/24 13:51 Height 6 ft 4 in Weight 223 lb BMI 27.1 BP 124/80 Blood Pressure Location Lt brachial Position Sitting Pulse 68 Pulse Source Pulse Oximeter Temp 97.1 F Temp Source Axillary Pulse Oximetry (%) 98 Oxygen Delivery Method Room Air Intake Visit Reasons: routine Thermostat Maker Required: No Accompanied by: Self / Same As Patient Allergies Penicillins Allergy (Mild, Verified 09/01/24 13:51) Vomiting Tobacco use date assessed: 09/01/24 Fall risk assessment: No Falls in past year Last assessed Fall Risk: 09/01/24 Dental Screening Dental Screen Date: 09/01/24 Did you have a dental visit in the last 12 months?: Yes Did you have a dental problem in the last 6 months where you did not have access to dental care?: No [facility] Medical History (Updated 09/01/24 @ 15:26 by Torsten Martinez MD) Major depression in partial remission CAD (coronary artery disease) Diabetes Depression Patient denies medical problems Surgical History S/P cardiac catheterization Stented coronary artery History of cardiac cath Hx of CABG Family History Father No problems noted. Mother CAD (coronary artery disease) Social History Housing: House Alcohol intake: never Patient Tobacco Use Status: Never used Tobacco e-Cigarette/Vaping Use: Never Used Substance Use Type: Marijuana service: No Current occupational status: employed Cognitive needs: No Hearing needs: No Vision needs: Yes (rx glasses) Questionnaire PHQ-9 Over the last 2 weeks, how often have you been bothered by any of the following problems? 1. Little interest or pleasure in doing things: not at all 2. Feeling down, depressed, or hopeless: nearly every day 3. Trouble falling or staying asleep, or sleeping too much: nearly every day (trouble staying asleep ) 4. Feeling tired or having little energy: nearly every day (feeling tired ) 5. Poor appetite or overeating: nearly every day (poor appetite) 6. Feeling bad about yourself - or that you are a failure or have let yourself or your family down: not at all 7. Trouble concentrating on things, such as reading the newspaper or watching television: not at all 8. Moving or speaking so slowly that other people could have noticed. Or the opposite - being so fidgety or restless that you have been moving around a lot more than usual: not at all 9. Thoughts that you would be better off or of hurting yourself in some way: not at all Total score: 12 Source: Developed by Drs. Oscar Orellana, Leslie Craig, Van Marquez and colleagues, with an educational rachel from [employer]. Thrive Questionnaire Date Thrive assessed: 09/01/24 I am a: Patient Within the past 12 months, did the food you bought not last and you didn't have the money to get more?: Never true Within the past 12 months, did you worry whether your food would run out before you got money to buy more?: Never true Do you have trouble paying for medicines?: No Do you have trouble getting transportation to medical appointments?: No Do you have trouble paying your heating and electricity bill?: No Do you have trouble taking care of your child, family member or friend?: No Do you have trouble with day-to-day activities such as bathing, preparing meals, shopping, managing finances, etc.?: No Are you currently unemployed and looking for a job?: No Are you interested in more education?: No THRIVE Score: 0 AUDIT C Alcohol Use Questionnaire (AUDIT-C) 1. How often do you have a drink containing alcohol?: Never 3. How often do you have six or more drinks on one occasion?: Never Total Score: 0 JESSICA-7 AMB Questionnaire JESSICA-7 Date JESSICA - 7 assessed: 09/01/24 Feeling nervous, anxious, or on edge: 0 = Not at all Not being able to stop or control worryin = Nearly every day Worrying too much about different things: 3 = Nearly every day Trouble relaxin = Not at all Being so restless that it is hard to sit still: 0 = Not at all Becoming easily annoyed or irritable: 0 = Not at all Feeling afraid as if something awful might happen: 0 = Not at all Total JESSICA-7 score (0-4 normal; 5-9 mild; 10-14 moderate; 15-21 severe): 6 Source: Developed by Drs. Oscar Orellana, Leslie Craig, Van Marquez and colleagues, with an educational rachel from [employer]. Physical exam (Primary Care) Vital Signs: Last Vital Signs Temp 97.1 F 09/01/24 13:51 Pulse 68 09/01/24 13:51 BP 124/80 09/01/24 13:51 Pulse Ox 98 09/01/24 13:51 Oxygen Delivery Method Room Air 09/01/24 13:51 BMI result Body Mass Index 27.1 Tobacco/Smoking Status: Tobacco use Status Tobacco use date assessed 09/01/24 09/01/24 13:52 Patient Tobacco Use Status Never used Tobacco 09/01/24 13:52 e-Cigarette/Vaping Use Never Used 09/01/24 13:52 PHQ-9: PHQ-9 Score PHQ-9: Total score 12 09/01/24 14:58 Thrive Assessment: Date of Thrive Assessment Date Thrive assessed 09/01/24 09/01/24 13:52 Coding Level of Care Code Est Pt Level 4 (80557) Complex EM visit Add On G2211 Diagnoses Major depression in partial remission F32.4 Assessment & Plan Assessment & Plan (1) Major depression in partial remission: Code(s): F32.4 - Major depressive disorder, single episode, in partial remission Category: Medical Plan: Continue Cymbalta, add Rexulti. Psychiatry consult requested Plan History of Present Illness - The patient is a 63-year-old male presenting with follow-up for coronary shey ry disease and medication management. - Coronary artery disease: The patient has undergone multiple heart surgeries, including stent placements, with the most recent being a year ago. - He is currently undergoing further cardiac evaluations, including an echocardiogram and nuclear stress test. - Depression: The patient reports a long-standing history of depression, exacerbated by recent life events such as divorce and the of close friends. - He is currently on duloxetine, which he feels is insufficient, and is considering augmentation with Rexulti. - Substance use disorder: The patient has a history of alcohol use disorder and opioid addiction, both in remission for over 15 years. 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 - Substance use: History of alcohol use disorder and opioid addiction, both in remission for over 15 years. Review of Systems - Cardiovascular: Reports undergoing cardiac evaluations, denies current chest pain. - Psychiatric: Reports depression, denies suicidal ideation. Physical Exam General: Cooperative and healthy appearing Nutritional Appearance: Well nourished Orientation/consciousness: Patient oriented x3 Limitations: No limitations Head: Normal to inspection General: Appearance normal, both eyes and all related structures Neck: Normal visual inspection Chest: Normal palpation of entire chest wall Respiratory: N ormal respiratory effort Neurology: Patient oriented x3, reports depression worsening, situational factors contributing, history of substance abuse, currently managed with duloxetine 120 mg daily. Results - Cardiac Tests: Echocardiogram and nuclear stress test planned. Plan 1. Coronary Artery Disease - Continue with planned echocardiogram and nuclear stress test to assess current cardiac status. - Discussed stopping blood thinners temporarily for dental implant surgery, with a plan to resume post-procedure. 2. Depression - Consider augmentation of current duloxetine therapy with Rexulti, pending further evaluation. - Continue cognitive behavioral therapy as part of mental health management. 3. Substance Use Disorder In Remission - Maintain current sobriety and continue monitoring for any signs of relapse. Discussion Notes During the visit, we discussed the patient's ongoing cardiac evaluations and the plan to temporarily stop blood thinners for dental surgery. We also reviewed the patient's depression management, considering augmentation with Rexulti. The importance of maintaining sobriety was emphasized. Patient Instructions - Continue with scheduled cardiac tests and follow up with results. - Temporarily stop blood thinners as discussed for dental procedure, and resume as advised. - Discuss potential medication changes with your healthcare provider. - Maintain sobriety and continue attending therapy sessions. Medications: New brexpiprazole (Rexulti) 0.5 mg PO DAILY 30 tabs 0RF
[2024-09-01 13:51] VITALS: BP 124/80; PULSE 68; TEMP 36.2; O2SAT 98; BMI 27.1
--- OUTSIDE RECORDS SUMMARY | 2024-09-01 15:32 | XMS_ITS | Patient Health Record ---
Author Organization [facility] Address [address] [place] [address] Care Team Providers Care Drapery Inspector Name Role Phone ALISTAIR MCKEON Primary Care Provider Mati Holder Jr Unavailable [phone] Allergies No Known Allergies Reason For [...] Problem Status W/U Status Risk Notes Problem 856886107 Colon cancer screening (Z12.11) Active confirmed Problem 074046754 Encounter for other preprocedural examination (Z01.818) Active confirmed Problem 023942543 Long-term use of aspirin therapy (Z79.82) Active confirmed Plan Of Treatment Future Test Test Name Order Date COLONOSCOPY 05/31/2022 Next Appt Details Provider Name:Mati moreno Jr, 10/15/2024 11:20:00 AM, [address] [facility], [address], [place], [address], Insurance Providers Payer Name Payer Address Payer Phone Subscriber Number Group Number Insured Name Patient Relationship to Insured Coverage Start Date Coverage End Date [facility] [address] [place] [address] [id number] RELL HERRING Self - patient is the insured Medical (General) History Medical History History ICD Code Diabetes mellitus type 2 NSTEMI 01/02 BPH Hyperlipidemia Depression/anxiety Surgical History Surgery Date(Month/Year) CABG x4 02/01 hip replacement 2020 quadriceps reconstruction 2005
== END 2024-09-01 15:24 | disposition home or self-care (01) ==
LOC: HO.HMCHD 14:44
PROVIDERS: PCP Internal Medicine; Visit Provider Internal Medicine
DX: F32.4 Major depressive disorder, single episode, in partial remission (principal)

== ENCOUNTER → 2024-09-01 14:43 | Outpatient (BNVA) | payer OTHER, SELFPAY | PROVIDERS: PCP Internal Medicine; Visit Provider Internal Medicine | DX: F32.4 Major depressive disorder, single episode, in partial remission (principal); I25.10 Atherosclerotic heart disease of native coronary artery without angina pectoris; F32.A Depression, unspecified | CPT/HCPCS: 99212 ==

== ENCOUNTER → 2024-09-16 14:04 | Outpatient (REF) | payer OTHER, SELFPAY ==
--- NOTE | 2024-09-16 14:07 | CA_ITS ---
Transthoracic Echocardiogram Patient (Last, First, Middle): Keo Kingston, Gender: Male Date of : 1960 Age: 63 Procedure Date: 09/16/2024 Procedure Type: Transthoracic Echocardiogram Location: OP Height: 193.04 cm Weight: 101.15 kg BSA: 2.32 m2 Heart Rate: 45 bpm BP: 124 / 80 mmHg Field Crops Harvest Machine Operator: RACQUEL Referring MD: Dasia Varela LEAD DRIVER-Chantal Symptoms: I25.10 - Atherosclerotic heart disease of [place] coronary artery without... Study Quality: Adequate ECG Rhythm: Bradycardia Conclusions: - The left ventricular systolic function is normal. The calculated ejection fraction is 58% by biplane method. - The basal inferolateral segment is akinetic. - The basal inferior segment is hypokinetic. - No obvious valvular pathology seen on this study. - There is mild dilatation of the ascending aorta measuring 3.90 cm and mild dilatation of the aortic arch measuring 3.90 cm. Findings Left Ventricle Normal left ventricular cavity size. The left ventricular systolic function is normal. The calculated ejection fraction is 58% by biplane method. Diastolic function is normal for age. There is moderate septal asymmetric hypertrophy. LV peak GLS -19.1%. Wall Motion Rest Echo Findings The basal inferior segment is hypokinetic. The basal inferolateral segment is akinetic. Right Ventricle Moderately increased right ventricular cavity size. There is normal right ventricular systolic function. Atria Both atria are normal in size. Aortic Valve There is a normal trileaflet aortic valve. There is mild calcification of the aortic valve. There is no aortic valve stenosis. There is no aortic valve regurgitation. Mitral Valve The mitral valve appears normal. There is trace mitral valve regurgitation. There is no mitral valve stenosis. Pulmonic Valve The pulmonic valve is likely normal. Tricuspid Valve There is mild tricuspid valve regurgitation. There is no evidence of pulmonary hypertension. Great Vessels There is mild dilatation of the ascending aorta measuring 3.90 cm and mild dilatation of the aortic arch measuring 3.90 cm. Venous The inferior vena cava is normal in size and collapses greater than 50% with inspiration. Pericardium/Pleural There is no evidence of pericardial effusion. Prior Study Comparison No significant change compared to prior study dated: 09/03/2023. Recommendations, Care & Conclusions No obvious valvular pathology seen on this study. Measurements 2D Linear Measurements IVSd: 1.40 0.6-0.9/0.6-1.0 cm LVIDd: 5.19 3.9-5.3/4.2-5.9 cm LVIDd Index: 2.24 2.4-3.2/2.2-3.1 cm/m2 LVIDs: 3.39 2.0-3.6 cm LVPWd: 0.97 0.7-1.1 cm LA Diam: 4.80 2.7-3.8/3.0-4.0 cm LAIDs Index: 2.07 1.5-2.3 cm/m2 LV Mass: 304.33 67-162/88-224 g LV Mass Index: 131.18 43-95/49-115 g/m2 LVOT Diam: 2.30 3.0+(-)1.3 cm 2D Systolic Function EF 4C: 54.80 >55% EF 2C: 59.90 >55% EF BiP: 58.20 >55% Mitral Valve MV Pk E: 0.50 MV PK A: 0.51 MV Decel Time: 480.00 E/A: 1.00 E'Lateral: 11.40 E'Medial: 6.64 E/E' Med: 7.50 E/E' Lat: 4.40 PHT: 141.00 MVA PHT: 1.56 Decel Love: 1.04 Aortic Valve AoV Pk Joon: 1.59 AoV Mn Joon: 1.17 AoV VTI: 0.35 AoV Pk Grad: 10.00 Aov Mn Grad: 6.00 MACHELLE Cont.VTI: 3.16 LVOT LVOT Pk Joon: 1.36 LVOT Mn Joon: 0.94 LVOT VTI: 0.27 LVOT Pk Grad: 7.00 LVOT Mn Grad: 4.00 LVOT Diam: 2.30 LVOT Area: 4.15 Diastolic Function MV Pk E: 0.50 MV Pk A: 0.51 E/A: 1.00 E'Medial: 6.64 E/E' Med: 7.50 E' Laterial: 11.40 E/E' Lat: 4.40 Right Ventricle TAPSE (mm): 21.40 TVS' Joon: 12.40 Tricuspid Valve TR Pk Joon: 2.16 TR Pk Grad: 19.00 RA Press: 3.00 RVSP: 22.00 Great Vessels Aorta Sinus of Valsalva: 3.74 2.0-3.5 cm Ao Asc: 3.90 2.1-3.4 cm Ao Arch: 3.90 Updated in Other Vendor System with Status of Final Davidson Catalan MD electronically signed on 09/17/2024 11:54:49 AM with status of Final
== END ==
LOC: HO.CARD 14:04
PROVIDERS: PCP Internal Medicine; Visit Provider Nurse Practitioner Family
DX: I25.10 Atherosclerotic heart disease of native coronary artery without angina pectoris (principal); Z95.1 Presence of aortocoronary bypass graft; R53.83 Other fatigue
CPT/HCPCS: 93306

== ENCOUNTER → 2024-09-16 14:07 | Outpatient (BNV) | payer OTHER, SELFPAY | PROVIDERS: PCP Internal Medicine; Visit Provider Internal Medicine | DX: I42.2 Other hypertrophic cardiomyopathy (principal); I51.89 Other ill-defined heart diseases; I35.8 Other nonrheumatic aortic valve disorders; I36.1 Nonrheumatic tricuspid (valve) insufficiency | CPT/HCPCS: 93306; 93356 ==

== ENCOUNTER 2024-11-14 07:18 | Day surgery (SDC) | payer OTHER, SELFPAY ==
--- OUTSIDE RECORDS SUMMARY | 2024-10-15 07:20 | XMS_ITS ---
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 Role Phone ALISTAIR MCKEON Primary Care Provider Mati Holder Jr Unavailable Allergies No Known Allergies REASON FOR VISIT Patient presents today for a colon screening Medications Medication SIG (Take, Route, Frequency, Duration) Notes Start Date End Date Status Isosorbide Mononitrate ER 30 MG TAKE 1 TABLET BY MOUTH EVERY DAY Oral for 90 Days Active Jardiance 10 MG TAKE 1 TABLET BY AURA TH EVERY DAY Oral for 90 Days Active Ezetimibe 10 MG TAKE 1 TABLET BY AURA TH DAILY Oral for 90 Days Active ARIPiprazole 5 MG TAKE 1 TABLET BY AURA TH EVERYDAY AT BEDTIME Oral for 30 Days Active amLODIPine Besylate 10 MG Oral for 90 Active DULoxetine HCl 60 MG TAKE 2 CAPSULES BY MOUTH EVERY DAY Oral for 90 Active Gabapentin 100 MG Oral for 20 Active Glycopyrrolate 1 MG Oral for 90 Active Metoprolol Tartrate 25 MG TAKE 1/2 TABLE T BY MOUTH TWICE A DAY Oral for 90 Active Rosuvastatin Calcium 40 MG Oral for 90 Active Jardiance 10 MG TAKE 1 TABLET BY AURA TH EVERY MORNING Oral for 30 Active Social History Tobacco Use: Social History Observation Description Date Details (start date - stop date) Never Smoker NA - NA Tobacco Use/Smoking Question Answer Notes Patient is a nonsmoker Alcohol Screen Question Answer Notes Did you have a drink containing alcohol in the p ast year? No Points 0 Interpretation Negative Vital Signs Temperature 98.6 degrees Fahrenheit 10/16/19 25 Blood pressure systolic 001 mm Hg 10/16/19 25 Blood pressure diastolic 01 mm Hg 025 Height 76 in 10/15/2024 Weight 223.2 lbs 10/15/2024 BMI 27.17 kg/m2 10/15/2024 Encounters Encounter Location Date Provider Diagnosis [facility] [address] [facility] [address] [place] [address] 10/15/2024 Mati Houser Jr Colon cancer screening Z12.11 ; Encounter for other preprocedural examination Z01.818 and Long-term use of aspirin therapy Z79.82 Assessments Encounter Date Diagnosis (ICD Code) Assessment Notes Treatment Notes Treatment Clinical Notes Section Notes 10/15/2024 Colon cancer screening (ICD-10 - Z12.11) We discussed colonoscopy today. We discussed risks and benefits of the procedure today. He understands these and agrees to proceed. He is advised to stop aspirin 1 week before the procedure and Jardiance 3 days before the procedure. 10/15/2024 Encounter for other preprocedural examination (ICD-10 - Z01.818) We discussed colonoscopy today. We discussed risks and benefits of the procedure today. He understands these and agrees to proceed. He is advised to stop aspirin 1 week before the procedure and Jardiance 3 days before the procedure. 10/15/2024 Long-term use of aspirin therapy (ICD-10 - Z79.82) We discussed colonoscopy today. We discussed risks and benefits of the procedure today. He understands these and agrees to proceed. He is advised to stop aspirin 1 week before the procedure and Jardiance 3 days before the procedure. Plan Of Treatment Future Test Test Name Order Date COLONOSCOPY 10/15/2024 Next Appt Details Follow Up: 1 Year, Reason: Provider Name:Mati moreno Jr, 11/14/2024 09:10:00 AM, [address] [place] [address] , [place], [place], [phone], Progress Notes * KEO H[birth year]DOB:[birth year] (64 yo M)Acc No.[id number]:10/15/2024 Progress Notes Patient: KEO MORRIS Provider: Jordon Houser MD :1960 A ge:64 Y S ex:Male Date:10/15/2024 Address:[address] [place] [address], [facility] Pcp:ALISTAIR MCKEON Subjective: * Chief Complaints: * 1 . Patient presents today for a colon screening. * HPI: N ew symptom(s): Keo is a pleasant 64-year-old man seen today for his first preoperative colonoscopy visit. He has no complaints of rectal bleeding or change in his bowel. Weight and appetite have been stable. * ROS: G eneral/Constitutional: Change in appetite d enies. F atigue d enies. ? E NT: Patient denies d ifficulty swallowing. R espiratory: Patient denies s hortness of breath. C ardiovascular: Patient denies c hest pain. G astrointestinal: Comments S [facility] for details. G enitourinary: Difficulty urinating d enies. I ncontinence d enies. M usculoskeletal: Patient denies m uscle aches. S kin: Patient denies p ruritis. N eurologic: Patient denies l ow back pain. P sychiatric: Patient denies m ental or physical abuse. * Medical History: D iabetes mellitus type 2, NSTEMI 01/02, BPH, Hyperlipidemia, Depression/anxiety, Stents put in 10/05. * Surgical History: C ABG x4 02/01, hip replacement 2019, quadriceps reconstruction 2005, Coronary artery disease with stent placement 10/05. * Family History: F ather: . M other: . No family history of colon cancer or liver cancer. * Social History: T obacco Use: T obacco Use/Smoking P atient is a n onsmoker. D rugs/Alcohol: A lcohol Screen D id you have a drink containing alcohol in the past year? N o, P oints 0 , I nterpretation N egative. M iscellaneous: M arital status: . 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 * Medications: T aking Jardiance 10 MG Tablet TAKE 1 TABLET BY MOUTH EVERY MORNING Oral , Taking Rosuvastatin Calcium 40 MG Tablet Oral , Taking Glycopyrrolate 1 MG Tablet Oral , Taking Gabapentin 100 MG Capsule Oral , Taking DULoxetine HCl 60 MG Capsule Delayed Release Particles TAKE 2 CAPSULES BY MOUTH EVERY DAY Oral , Taking amLODIPine Besylate 10 MG Tablet Oral , Taking Metoprolol Tartrate 25 MG Tablet TAKE 1/2 TABLET BY MOUTH TWICE A DAY Oral , Taking ARIPiprazole 5 MG Tablet TAKE 1 TABLET BY MOUTH EVERYDAY AT BEDTIME Oral , Taking Ezetimibe 10 MG Tablet TAKE 1 TABLET BY MOUTH DAILY Oral , Taking Jardiance 10 MG Tablet TAKE 1 TABLET BY MOUTH EVERY DAY Oral , Taking Isosorbide Mononitrate ER 30 MG Tablet Extended Release 24 Hour TAKE 1 TABLET BY MOUTH EVERY DAY Oral , Discontinued Ticagrelor 90 MG Tablet TAKE 1 TABLET BY MOUTH TWICE A DAY Oral * Allergies: N .K.D.A. Objective: * Vitals: W t:223.2lbs, Ht: 76 in, BMI:27.17Index, BP:001/01mm Hg, Temp:98.6, Wt-k.24. * Examination: G eneral Examination: GENERAL APPEARANCE: i n no acute distress. HEAD: n ormocephalic. EYES: s clera non-icteric. ORAL CAVITY: m ucosa moist. NECK/THYROID: n o lymphadenopathy. SKIN: a nicteric. HEART: S 1, S2 normal, no murmurs. LUNGS: c lear to auscultation bilaterally. CHEST: n ormal shape and expansion. ABDOMEN: s oft, nontender, nondistended, bowel sounds present, no organomegaly . EXTREMITIES: n o clubbing, cyanosis, or edema. PSYCH: c ognitive function intact. Assessment: * Assessment: 1. E ncounter for other preprocedural examination - Z01.818 (Primary) 2 . C olon cancer screening - Z12.11 3 . L prasanna-term use of aspirin therapy - Z79.82? We discussed colonoscopy tod ay. We discussed risks and benefits of the procedure today. He understands these and agrees to proceed. He is advised to stop aspirin 1 week before the procedure and Jardiance 3 days before the procedure. Plan: * Treatment: 2.?Colon cancer screening?Procedure: COLONOSCOPY (Ordered for 10/15/2024)* sched for 11/14/24 at 9:10 am macmiralax 3.?Long-term use of aspirin therapy?Procedure: COLONOSCOPY (Ordered for 10/15/2024)* sched for 11/14/24 at 9:10 am macmiralax * Procedure Codes: 3 017F COLORECTAL CA SCREEN DOC REV, G9905 No pt tbco scrn rng, G9744 PATIENT NOT ELIG D/T ACTIVE DX HTN * Preventive Medicine: Counseling: C are goal follow-up plan: A tevin Normal BMI Follow-up D ietary management education, guidance, and counseling, B GA management provided Y es. Screenings: F all Risk Screening F all Risk Assessment: N o falls in the past year, S creening: N o falls in the past year, A ssessment: N ot performed, no reason specified, P leatha of Care: N ot documented, no reason specified. * Follow Up: 1 Year * * Sign off status: Completed true * Provider: Jordon Houser MD Date: 10/15/2024 Generated for Bernardoi parker/Kalyn/eTransmitting on: 10/15/2024 04:44 PM EDT History and Physical Notes * HPI (History of Present Illness) Category Sub-Category Detail Notes Category Not es New symptom(s) Keo is a pleasant 64-year-old man seen today for his first preoperative colonoscopy visit. He has no complaints of rectal bleeding or change in his bowel. Weight and appetite have been stable. Examination Category Sub-Category Detail Notes Category Not es General Examination GENERAL APPEARANCE: in no acute di stress HEAD: normocephalic EYES: sclera non-icteric NECK/THYROID: no lymphadenopathy HEART: S1, S2 normal, no mu rmurs CHEST: normal shape and exp ansion LUNGS: clear to auscultatio n bilaterally ABDOMEN: soft, nontender, non distended, bowel sounds present, no organomegaly SKIN: anicteric EXTREMITIES: no clubbing, cyanosi s, or edema PSYCH: cognitive function i ntact ORAL CAVITY: mucosa moist
--- OUTSIDE RECORDS SUMMARY | 2024-10-15 16:44 | XMS_ITS | Patient Health Record ---
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 Name Role Phone ALISTAIR MCKEON Primary Care Provider Mati Holder Jr Unavailable Allergies No Known Allergies Reason For Referral No Information Medications Medication SIG (Take, Route, Frequency, Duration) Notes Start Date End Date Status Rosuvastatin Calcium 40 MG Oral for 90 Active Jardiance 10 MG TAKE 1 TABLET BY AURA TH EVERY MORNING Oral for 30 Active Isosorbide Mononitrate ER 30 MG TAKE 1 TABLET BY MOUTH EVERY DAY Oral for 90 Days Active Jardiance 10 MG TAKE 1 TABLET BY AURA TH EVERY DAY Oral for 90 Days Active amLODIPine Besylate 10 MG Oral for 90 Active DULoxetine HCl 60 MG TAKE 2 CAPSULES BY MOUTH EVERY DAY Oral for 90 Active Gabapentin 100 MG Oral for 20 Active Glycopyrrolate 1 MG Oral for 90 Active Ezetimibe 10 MG TAKE 1 TABLET BY AURA TH DAILY Oral for 90 Days Active ARIPiprazole 5 MG TAKE 1 TABLET BY AURA TH EVERYDAY AT BEDTIME Oral for 30 Days Active Metoprolol Tartrate 25 MG TAKE 1/2 TABLE T BY MOUTH TWICE A DAY Oral for 90 Active Immunizations Vaccine Route Administration Date Status Comme nts Influenza Unknown 11/29/2021 Administered Influenza Unknown 11/27/2023 Administered Social History Tobacco Use: Social History [...] Problem Status W/U Status Risk Notes Problem 811823388 Colon cancer screening (Z12.11) Active confirmed Problem 753147408 Encounter for other preprocedural examination (Z01.818) Active confirmed Problem 968640572 Long-term use of aspirin therapy (Z79.82) Active confirmed Vital Signs Temperature 98.6 degrees Fahrenheit 10/15/2024 Blood pressure diastolic 01 mm Hg 10/15/2024 Height 76 in 10/15/2024 Blood pressure systolic 001 mm Hg 10/15/2024 Weight 223.2 lbs 10/15/2024 BMI 27.17 kg/m2 10/15/2024 Encounters Encounter Location Date Provider Diagnosis [facility] [address] [place] [address] 10/15/2024 Mati Houser Jr Colon cancer screening [...] Test Test Name Order Date COLONOSCOPY 05/31/2022 COLONOSCOPY 10/15/2024 Next Appt Details Provider Name:Mati moreno Jr, 11/14/2024 09:10:00 AM, [address] [facility] , [place], [place], [phone], Insurance Providers Payer Name Payer Address Payer Phone Subscriber Number Group Number Insured Name Patient Relationship to Insured Coverage Start Date Coverage End Date [facility] [address] [place] [address] [phone] [id number] RELL HERRING Self - patient is the insured Medical (General) History Medical History History ICD Code Diabetes mellitus type 2 NSTEMI 01/02 BPH Hyperlipidemia Depression/anxiety stents put in 10/05 Surgical History Surgery Date(Month/Year) Coronary artery disease with stent place ment 10/05 quadriceps reconstruction 2005 hip replacement 2020 CABG x4 02/01
[2024-11-12 12:04] VITALS: BMI 26.9
--- NOTE | 2024-11-12 13:57 | HO.ANESPROP2 ---
Documented by User: Arlene Stuart NP 11/12/24 14:04 HPI - Anesthesia Eval Consult details Narrative: 64yo M for Colonoscopy Cardiac optimized. [facility]s [facility] for CAD s/p NC/CABG x 4 in 2020; stent 09/2023. Last office visit 07/2024. Pt reported fatigue, left arm tingling, and diaphoresis. Testing ordered. Echo done (no change from 2023). Stress test pending d/t insurance issues. OK to proceed without results per cardiology. Anesthesia Pre-Procedure Meds Is the patient on any of the following meds?: SGLT2 Inhib PMFSH Active Problems Active Problems: All Active Problems Fatigue (Acute) HLD (hyperlipidemia) (Acute) Acute posterior myocardial infarction (Acute) Major depression in partial remission (Acute) Diabetes (Acute) Hx of CABG (Acute) CAD (coronary artery disease) (Acute) Past Medical History Medical History Anxiety BPH (benign prostatic hyperplasia) Myocardial infarction Major depression in partial remission CAD (coronary artery disease) Diabetes Depression Patient denies medical problems Family History Family History Father No problems noted. Mother CAD (coronary artery disease) Surgical History Surgical History History of surgery on lower extremity (~2005) History of hip replacement (~2019) S/P cardiac catheterization Stented coronary artery History of cardiac cath Hx of CABG Social History Social History Housing: House Alcohol intake: never Patient Tobacco Use Status: Never used Tobacco e-Cigarette/Vaping Use: Never Used Use of substances other than those prescribed or required for medical reasons: Yes Substance Use Type: Marijuana Substance Use Frequency: Daily Advance Directives: No Advance Directives Information Provided: Yes service: No Current occupational status: employed Cognitive needs: No Hearing needs: No Vision needs: Yes (rx glasses) Meds Allergies Allergy/AdvReac Type Severity Reaction Status Date / Time Penicillins Allergy Mild Vomiting Verified 09/01/24 13:51 Home Medications ?Medication ?Instructions ?Recorded ?Confirmed ?Last Taken ?Type amlodipine 5 mg tablet 10 mg PO DAILY 09/20/23 11/12/24 Unknown History aspirin 81 mg tablet,delayed 81 mg PO DAILY 09/20/23 08/11/24 Unknown History release glycopyrrolate 1 mg tablet 2 mg PO DAILY 10/16/23 11/12/24 Unknown History metoprolol tartrate 25 mg tablet 12.5 mg PO BID 11/12/24 11/12/24 Unknown History Exam Height,Weight and Vital Signs: Height 6 ft 4 in Weight 100.244 kg Pertinent Lab Results Pertinent Lab Results: Laboratory Tests 07/22/24 06:16 WBC 4.9 Hgb 15.7 Hct 47.2 Plt Count 217 Sodium 139 Potassium 4.4 Chloride 108 Carbon Dioxide 24 BUN 19 H Creatinine 0.80 Narrative Narrative: EKG 07/2024 normal sinus rhythm, incomplete right bundle branch block, can not rule out prior inferior infarct, rate 70, QTC 449 millisecond ECHO 09/2024 Conclusions: - The left ventricular systolic function is normal. The calculated ejection fraction is 58% by biplane method. - The basal inferolateral segment is akinetic. - The basal inferior segment is hypokinetic. - No obvious valvular pathology seen on this study. - There is mild dilatation of the ascending aorta measuring 3.90 cm and mild dilatation of the aortic arch measuring 3.90 cm. Assessment and Plan Assessment Anesthesia Assessment: Chart Reviewed Documented by User: Yolanda Granados MD 11/14/24 08:50 [facility] Past Medical History Medical History Anxiety BPH (benign prostatic hyperplasia) Myocardial infarction Major depression in partial remission CAD (coronary artery disease) Diabetes Depression Patient denies medical problems Family History Family History Father No problems noted. Mother CAD (coronary artery disease) Surgical History Surgical History History of surgery on lower extremity (~2005) History of hip replacement (~2019) S/P cardiac catheterization Stented coronary artery History of cardiac cath Hx of CABG History of Problems with Anesthesia: No Social History Social History Housing: House Alcohol intake: never Patient Tobacco Use Status: Never used Tobacco e-Cigarette/Vaping Use: Never Used Use of substances other than those prescribed or required for medical reasons: Yes Substance Use Type: Marijuana Substance Use Frequency: Daily Advance Directives: No Advance Directives Information Provided: Yes service: No Current occupational status: employed Cognitive needs: No Hearing needs: No Vision needs: Yes (rx glasses) Meds Allergies Allergy/AdvReac Type Severity Reaction Status Date / Time Penicillins Allergy Mild Vomiting Verified 09/01/24 13:51 Home Medications ?Medication ?Instructions ?Recorded ?Confirmed ?Last Taken ?Type amlodipine 5 mg tablet 10 mg PO DAILY 09/20/23 11/12/24 Unknown History aspirin 81 mg tablet,delayed 81 mg PO DAILY 09/20/23 08/11/24 Unknown History release glycopyrrolate 1 mg tablet 2 mg PO DAILY 10/16/23 11/12/24 Unknown History metoprolol tartrate 25 mg tablet 12.5 mg PO BID 11/12/24 11/12/24 Unknown History Exam Airway Mallampati Class: III TM Dist: >3cm Neck ROM: Full Loose/Missing/Broken Teeth: No (dental implants) Heart: RRR Lungs: CTA Assessment and Plan Assessment Anesthesia Assessment: Anesthesia Plan Discussed Final Anesthetic Review History of Problems with Anesthesia: No NPO: Yes ASA Class: III Final Preanesthetic Review: Meds/Allgs Chart Reviewed, Consent Obtained/Reviewed and Anes Risks/Benef Reviewed Patient Risk: Intermediate Procedure Risk: Low Anesthetic Plan Anesthetic Plan: MAC: Disposition: Standard PACU
[2024-11-14 07:51] VITALS: BMI 27.1
[2024-11-14 08:06] VITALS: BP 105/81; PULSE 65; RESP 16; TEMP 36.8; O2SAT 98
[2024-11-14] MEDS: Lactated Ringers 1,000 ML 100 ML IVCONT (08:08)
[2024-11-14 08:13] LABS: Glucose, Whole Blood 116 mg/dL (60-115)
--- NOTE | 2024-11-14 09:00 | MHC.SHP ---
Pre-Procedural Eval Section A - 24 Hr Update-Section A only Date of Service: 11/14/24 Section B - Complete if H&P > 30 days Chief Complaint: screening Details of Present Illness: see H&p no changes Relevant Family History (Specify if Yes): No Relevant Social History: None Present Medications: see Short Stay Collaborative assessment Medical History: No relevant PMH History of Previous Operations: No relevant previous surgery Allergies: Allergies Allergy/AdvReac Type Severity Reaction Status Date / Time Penicillins Allergy Mild Vomiting Verified 09/01/24 13:51 Review of Systems Sugical H&P ROS: Negative: Constitution, Cardiovascular, Respiratory, Neurological, Psychiatric, Hem-Onc, Allergic/Immunologic, Gastrointestinal, Genitourinary, Musculoskeletal, Integumentary, Endocrine and Eyes/Ears/Nose/Throat Exam Surgical H&P Exam: Normal: HEENT, Normal: Heart, Normal: Lungs, Normal: Extremities, Normal: Abdomen, Normal: Skin and Normal: Neurological Plan I have reviewed the history and physical and performed a pertinent physical examination on my patient. No changes have occurred unless specified. Time Spent With Patient Time: Total time managing care of this patient today ____ minutes.
[2024-11-14 10:21] VITALS: BP 107/72; PULSE 51; RESP 16; TEMP 36.3; O2SAT 96
[2024-11-14 10:36] VITALS: BP 135/69; PULSE 52; RESP 16; TEMP 36.4; O2SAT 98
--- NOTE | 2024-11-14 11:25 | OP_ITS ---
DATE OF SERVICE: 11/14/2024 SURGEON: Mati Houser MD PREOPERATIVE DIAGNOSIS: POSTOPERATIVE DIAGNOSIS: PROCEDURE PERFORMED: ESTIMATED BLOOD LOSS: COMPLICATIONS: ANESTHESIA: Monitored anesthesia care. ASSISTANTS: SPECIMENS: PROCEDURES PERFORMED: Colonoscopy to the cecum with biopsy and snare polypectomy, injection of Lily ink, and placement of hemostatic endoscopic clip. DESCRIPTION OF PROCEDURE: A history and physical was performed. The risks and benefits of the procedure were explained to the patient and informed consent was obtained. The patient was placed in the left lateral decubitus position. A digital rectal exam was performed and was found to be normal. The Olympus pediatric video colonoscope was introduced into the rectum and advanced to the cecum. The cecum was identified by transillumination, palpation, and identification of ileocecal valve. Examination was performed. The scope was removed. He tolerated the procedure well and was returned to recovery area in stable condition. FINDINGS: The terminal ileum was not examined. There was moderate amount of liquid stool and undigested food material, which was washed and suctioned as best possible. This limited the examination for detection of small polyps. Multiple polyps were identified and removed. The polyps were located in the hepatic flexure, which was removed with biopsy forceps measuring less than 5 mm. The second polyp was located at 50 cm, which we removed with a snare measuring less than 10 mm. At 30 cm, there were 2 polyps measuring 10 and 15 mm respectively. These were removed in piecemeal manner and recovered via combination of suction, Peck net retrieval device, and use of the scope to hold the polyp as it was removed. This required multiple re-insertions and removals and made the procedure technically difficult and extended. The base of the larger polyp was cauterized. A single hemostatic clip was placed and the area was injected with 2 mL of Lily ink for further marking and re-evaluation pending biopsy results. There was mild sigmoid diverticulosis. The sigmoid was somewhat tortuous. Retroflexed examination showed internal hemorrhoids. IMPRESSION: Colon polyps. RECOMMENDATION: Follow up the biopsy results. MD BORIS Zendejas/JEFRY / [phone] NICO
== END 2024-11-14 11:31 | disposition home or self-care (01) ==
PROVIDERS: PCP Internal Medicine; Visit Provider Internal Medicine Gastroenterology
PROC: 0DJD8ZZ Inspection of Lower Intestinal Tract, Via Natural or Artificial Opening Endoscopic (ICD-10-PCS; CPT 45378; principal; 2024-11-14 09:10)
DX: Z12.11 Encounter for screening for malignant neoplasm of colon (principal); E11.9 Type 2 diabetes mellitus without complications; I25.2 Old myocardial infarction; Z79.82 Long term (current) use of aspirin; Z79.84 Long term (current) use of oral hypoglycemic drugs; Z88.0 Allergy status to penicillin
CPT/HCPCS: 45385; 45380; 45381; 82947; 88305; J2003; J2250; J2704

== ENCOUNTER 2025-01-28 14:01 | Outpatient (AMB) | payer OTHER, SELFPAY ==
--- OUTSIDE RECORDS SUMMARY | 2024-11-14 04:10 | XMS_ITS ---
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 Name Role Phone MIKE ALISTAIR Primary Care Provider Mati Holder Jr Unavailable [phone] REASON FOR VISIT screening Medications Medication SIG (Take, Route, Frequency, Duration) Notes Start Date End Date Status Jardiance 10 MG Tablet TAKE 1 TABLET BY MOUTH EVERY DAY Oral; Duration: 90 Days Active Isosorbide Mononitrate ER 30 MG Tablet Extended Release 24 Hour TAKE 1 TABLET BY MOUTH EVERY DAY Oral; Duration: 90 Days Active Jardiance 10 MG Tablet TAKE 1 TABLET BY MOUTH EVERY MORNING Oral; Duration: 30 Active Rosuvastatin Calcium 40 MG Tablet Oral; Duration: 90 Active Glycopyrrolate 1 MG Tablet Oral; Duration: 90 Active DULoxetine HCl 60 MG Capsule Delayed Release Particles TAKE 2 CAPSULES BY MOUTH EVERY DAY Oral; Duration: 90 Active amLODIPine Besylate 10 MG Tablet Oral; Duration: 90 Active Metoprolol Tartrate 25 MG Tablet TAKE 1/2 TABLET BY MOUTH TWICE A DAY Oral; Duration: 90 Active ARIPiprazole 5 MG Tablet TAKE 1 TABLET B Y MOUTH EVERYDAY AT BEDTIME Oral; Duration: 30 Days Active Ezetimibe 10 MG Tablet TAKE 1 TABLET BY MOUTH DAILY Oral; Duration: 90 Days Active Gabapentin 100 MG Capsule Oral; Duration: 20 Active Encounters Encounter Location Date Provider Diagnosis [facility] [address] [place] [phone] 11/14/2024 Mati Houser Jr Plan Of Treatment Next Appt Details Provider Name:Mati moreno Jr, 05/19/2025 07:30:00 AM, [address] [place] [address], [phone], Progress Notes * RELL HERRINGDOB:[birth year] (64 yo M)Acc No.[id number]:11/14/2024 COLON WITH MAC Patient: RELL MORRIS Provider: Jordon Houser MD :1960 A ge:64 Y S ex:Male Date:11/14/2024 Address:[address] [place] [address], [facility] Pcp:ALISTAIR MCKEON Subjective: * Chief Complaints: * S creening * Medications: T akingJardiance 10 MG Tablet TAKE 1 TABLET BY MOUTH EVERY MORNING Oral Rosuvastatin Calcium 40 MG Tablet Oral Glycopyrrolate 1 MG Tablet Oral Gabapentin 100 MG Capsule Oral DULoxetine HCl 60 MG Capsule Delayed Release Particles TAKE 2 CAPSULES BY MOUTH EVERY DAY Oral amLODIPine Besylate 10 MG Tablet Oral Metoprolol Tartrate 25 MG Tablet TAKE 1/2 TABLET BY MOUTH TWICE A DAY Oral ARIPiprazole 5 MG Tablet TAKE 1 TABLET BY MOUTH EVERYDAY AT BEDTIME Oral Ezetimibe 10 MG Tablet TAKE 1 TABLET BY MOUTH DAILY Oral Jardiance 10 MG Tablet TAKE 1 TABLET BY MOUTH EVERY DAY Oral Isosorbide Mononitrate ER 30 MG Tablet Extended Release 24 Hour TAKE 1 TABLET BY MOUTH EVERY DAY Oral Taking Jardiance 10 MG Tablet TAKE 1 TABLET BY MOUTH EVERY MORNING Oral Taking Rosuvastatin Calcium 40 MG Tablet Oral Taking Glycopyrrolate 1 MG Tablet Oral Taking Gabapentin 100 MG Capsule Oral Taking DULoxetine HCl 60 MG Capsule Delayed Release Particles TAKE 2 CAPSULES BY MOUTH EVERY DAY Oral Taking amLODIPine Besylate 10 MG Tablet Oral Taking Metoprolol Tartrate 25 MG Tablet TAKE 1/2 TABLET BY MOUTH TWICE A DAY Oral Taking ARIPiprazole 5 MG Tablet TAKE 1 TABLET BY MOUTH EVERYDAY AT BEDTIME Oral Taking Ezetimibe 10 MG Tablet TAKE 1 TABLET BY MOUTH DAILY Oral Taking Jardiance 10 MG Tablet TAKE 1 TABLET BY MOUTH EVERY DAY Oral Taking Isosorbide Mononitrate ER 30 MG Tablet Extended Release 24 Hour TAKE 1 TABLET BY MOUTH EVERY DAY Oral * The named appointment provid er may or may not be the originator of this progress note, and it is not deemed complete until electronically signed by the appointment provider. Sign off status: Pending * Provider: Jordon Houser MD Date: 1 Generated for Mason canales/Kalyn/Rebecca on: 1 03/31/2024 06:44 PM EST
--- NOTE | 2025-01-28 14:08 | MHC.PC.OV ---
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: No Accompanied by: Self / Same As Patient Allergies Penicillins Allergy (Mild, Verified 01/28/25 14:09) Vomiting Medication List - Last Reconciled 01/28/25 by Dharmesh Del Cid MD amlodipine 10 mg PO DAILY aripiprazole 5 mg PO BEDTIME aspirin 81 mg PO DAILY duloxetine 120 mg (2 x 60 mg) PO DAILY empagliflozin (Jardiance) 10 mg PO DAILY 90 days ezetimibe 10 mg PO DAILY gabapentin 100 mg PO TID PRN glycopyrrolate 2 mg (2 x 1 mg) PO DAILY 90 days isosorbide mononitrate ER 30 mg PO DAILY metoprolol tartrate 12.5 mg PO BID rosuvastatin 40 mg PO DAILY Tobacco use date assessed: 01/28/25 Fall risk assessment: No Falls in past year Last assessed Fall Risk: 01/28/25 Dental Screening Dental Screen Date: 01/28/25 Did you have a dental visit in the last 12 months?: Yes Did you have a dental problem in the last 6 months where you did not have access to dental care?: No HPI HPI Comments History of Present Illness Details History of Present Illness The patient is a 64 year old male presenting for evaluation of new-onset low back pain and management of his chronic conditions. His primary concern is low back pain that began in March after a massage where he felt excessive pressure was applied to his lumbosacral region. The pain subsequently radiated down his left leg with some associated tingling, and he feels the symptoms in his left hip are identical to those he experienced in his right hip prior to its replacement. He has been taking gabapentin 100 mg for the pain but reports it is not helping. The patient's past medical history is significant for coronary artery disease, for which he underwent quadruple bypass and a subsequent follow-up heart surgery. He also has a history of type 2 diabetes, which was more prominent when his weight was around 305 pounds; he currently weighs 225 pounds. His last A1c in July was 5.7%. He also has hyperlipidemia with a recent LDL of 66 mg/dL, and hypertension. 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 He recently had his first colonoscopy, which revealed precancerous polyps requiring closer follow-up. He smoked tobacco for a couple of years around age 39 but has since quit. Medical History: - Coronary artery disease - Type 2 diabetes mellitus - Essential hypertension - Hyperlipidemia - Depression - Hyperhidrosis - History of precancerous colon polyps - Right quadriceps tear - History of tobacco use, quit Surgical History: - Quadruple coronary artery bypass grafting - Follow-up heart surgery, unspecified - Right total hip arthroplasty - Colonoscopy with removal of polyps Medications: - Amlodipine 10 mg once a day for blood pressure - Aspirin 81 mg for coronary artery disease - Ezetimibe 10 mg for cholesterol - Gabapentin 100 mg three times a day for pain - Glycopyrrolate for hyperhidrosis - Isosorbide mononitrate 30 mg for blood pressure - Jardiance for diabetes - Metoprolol tartrate 25 mg for blood pressure - Omeprazole 5 mg (patient states for depression, though this is likely incorrect) - Rosuvastatin 40 mg for cholesterol Diagnostic Results: - Labs (from July): - Blood counts: Normal - Electrolytes: Normal - Kidney function: Good - Hemoglobin A1c: 5.7% - LDL cholesterol: 66 mg/dL - Total cholesterol: 141 mg/dL - Procedures: - Colonoscopy (recent): Revealed precancerous polyps. 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 - Substance Use: He smoked tobacco for a couple of years at age 39 but is not a current user. - He reports smoking marijuana. - Exercise: He reports his back issues have limited his ability to play golf. - He states he tries to walk a couple of miles but has been less active recently. - Weight History: He has a history of obesity, with a prior weight of 305 lbs and a current weight of approximately 225 lbs. REPLACED BY [facility] Medical History (Updated 01/28/25 @ 14:47 by Dharmesh Del Cid MD) Hyperhidrosis Hypertension, essential, benign Low back pain Anxiety BPH (benign prostatic hyperplasia) Myocardial infarction Major depression in partial remission CAD (coronary artery disease) Diabetes Depression Patient denies medical problems Surgical History (Updated 01/28/25 @ 14:47 by Dharmesh Del Cid MD) History of colonoscopy (11/14/24) History of surgery on lower extremity (~2005) History of hip replacement (~2019) S/P cardiac catheterization Stented coronary artery History of cardiac cath Hx of CABG Family History (Updated 01/28/25 @ 14:17 by Lyndsay Cyr MA) Father No problems noted. Mother CAD (coronary artery disease) Social History Housing: House Alcohol intake: never Patient Tobacco Use Status: Never used Tobacco e-Cigarette/Vaping Use: Never Used Substance Use Type: Marijuana service: No Current occupational status: employed Cognitive needs: No Hearing needs: No Vision needs: Yes (rx glasses) Questionnaire PHQ-9 Over the last 2 weeks, how often have you been bothered by any of the following problems? 1. Little interest or pleasure in doing things: not at all 2. Feeling down, depressed, or hopeless: not at all 3. Trouble falling or staying asleep, or sleeping too much: not at all 4. Feeling tired or having little energy: not at all 5. Poor appetite or overeating: not at all 6. Feeling bad about yourself - or that you are a failure or have let yourself or your family down: not at all 7. Trouble concentrating on things, such as reading the newspaper or watching television: not at all 8. Moving or speaking so slowly that other people could have noticed. Or the opposite - being so fidgety or restless that you have been moving around a lot more than usual: not at all 9. Thoughts that you would be better off or of hurting yourself in some way: not at all Total score: 0 Depression Screening Interpretation: Negative Depression Screening Done: Yes Source: Developed by Drs. Oscar Orellana, Leslie Craig, Van Marquez and colleagues, with an educational rachel from [employer]. Thrive Questionnaire Date Thrive assessed: 01/28/25 I am a: Patient Within the past 12 months, did the food you bought not last and you didn't have the money to get more?: Never true Within the past 12 months, did you worry whether your food would run out before you got money to buy more?: Never true Do you have trouble paying for medicines?: No Do you have trouble getting transportation to medical appointments?: No Do you have trouble paying your heating and electricity bill?: No Do you have trouble taking care of your child, family member or friend?: No Do you have trouble with day-to-day activities such as bathing, preparing meals, shopping, managing finances, etc.?: No Are you currently unemployed and looking for a job?: No Are you interested in more education?: No THRIVE Score: 0 AUDIT C Alcohol Use Questionnaire (AUDIT-C) 1. How often do you have a drink containing alcohol?: Never 3. How often do you have six or more drinks on one occasion?: Never Total Score: 0 JESSICA-7 AMB Questionnaire JESSICA-7 Date JESSICA - 7 assessed: 01/28/25 Feeling nervous, anxious, or on edge: 0 = Not at all Not being able to stop or control worryin = Not at all Worrying too much about different things: 0 = Not at all Trouble relaxin = Not at all Being so restless that it is hard to sit still: 0 = Not at all Becoming easily annoyed or irritable: 0 = Not at all Feeling afraid as if something awful might happen: 0 = Not at all Total JESSICA-7 score (0-4 normal; 5-9 mild; 10-14 moderate; 15-21 severe): 0 Source: Developed by Drs. Oscar Orellana, Leslie Craig, Van Marquez and colleagues, with an educational rachel from [employer]. Review of Systems Narrative Review of Systems - Musculoskeletal: Reports low back pain, which began in March, and left hip pain. - Neurological: Reports nagging pain with some tingling radiating down his left leg. - Integumentary: Reports hyperhidrosis, which is well-controlled with medication. - Gastrointestinal: Reports recent colonoscopy found precancerous polyps. - Psychiatric: Reports situational depression. All systems reviewed & are unremarkable except as reviewed in HPI and above Physical exam (Primary Care) Vital Signs: Last Vital Signs Temp 98.6 F 01/28/25 14:09 Pulse 64 01/28/25 14:09 BP 128/70 01/28/25 14:09 Pulse Ox 97 01/28/25 14:09 Oxygen Delivery Method Room Air 01/28/25 14:09 BMI result Body Mass Index 27.4 Tobacco/Smoking Status: Tobacco use Status Tobacco use date assessed 01/28/25 01/28/25 14:10 Patient Tobacco Use Status Never used Tobacco 01/28/25 14:10 e-Cigarette/Vaping Use Never Used 01/28/25 14:10 PHQ-9: PHQ-9 Score PHQ-9: Total score 0 01/28/25 14:40 Depression Screening Interpretation: Negative Thrive Assessment: Date of Thrive Assessment Date Thrive assessed 01/28/25 01/28/25 14:10 Narrative Physical Exam General: Alert and oriented, Well nourished, No acute distress. Eye: Pupils are equal, round and reactive to light, Intact accommodation, Extraocular movements are intact, Normal conjunctiva, Vision unchanged. HENT: Normocephalic, Atraumatic, Tympanic membranes are clear, Normal hearing, Oral mucosa is moist, No pharyngeal erythema, Ear canals patent. Respiratory: Lungs CTA bilaterally, No wheeze, Respirations are non-labored. Cardiovascular: Regular rate, Regular rhythm, S1 auscultated, S2 auscultated, No murmur, Good pulses equal in all extremities, Normal peripheral perfusion, No edema. Gastrointestinal: Soft, Non-tender, Non-distended, Normal bowel sounds, No organomegaly. Musculoskeletal: Limited range of motion due to back pain, Normal strength, No tenderness, No swelling, No deformity, Normal gait. Integumentary: Warm, Dry, [place], Intact. Neurologic: Alert, Oriented, Normal sensory, Normal motor function, No focal defects, Cranial Nerves II-XII are grossly intact, Normal deep tendon reflexes. Psychiatric: Cooperative, Appropriate mood & affect, Normal judgment. Office Procedures Flu Questionnaire Does the patient have a severe egg allergy?: No Does the patient have severe life threatening allergies?: No Does the patient have a fever or illness today?: No Has the patient ever had Guillain-[place] Syndrome?: No Has the patient ever had any past reaction to a flu shot?: No Immunizations Fluzone High-Dose (PF) 180 mcg/0.5 mL intramuscular syringe Performing Provider: Dharmesh Del Cid MD Performing Location: [facility] HD Administered by: Dharmesh Del Cid MD on 01/28/25 14:29 Dose Route Admin Location Dispensed Lot Number Expiration Date NDC Retail Loss Prevention Investigator 0.5 mL IM Left Deltoid 0.5 mL [id number] 07/13/25 [id number] [employer] Total Dispensed Waste 0.5 mL 0 % VIS Given Date VIS Provided VIS Publication Date 01/28/25 Single Vaccine 24 Eligibility Eligibility Date Funding Source Not [facility] Eligible 01/28/25 Private Coding Level of Care Code Est Pt Level 4 (86853) Add On Problem Visit Only Diagnoses Chronic left-sided low back pain with left-sided sciatica M54.42; G89.29 Chronicity: chronic Back pain laterality: left Sciatica presence: with sciatica Sciatica laterality: sciatica of left side Type 2 diabetes mellitus without complication, without long-term current use of insulin E11.9 Diabetes mellitus type: type 2 Diabetes mellitus custodial insulin use: without custodial use Diabetes mellitus complication status: without complication Other hyperlipidemia E78.49 Hyperlipidemia type: other hyperlipidemia Hx of CABG Z95.1 Hypertension, essential, benign I10 Recurrent major depressive disorder, in partial remission F33.41 Major depression recurrence: recurrent Hyperhidrosis R61 Assessment & Plan Assessment & Plan (1) Low back pain: Comment: - The patient's new-onset pain began after a massage and radiates down his left leg, concerning for lumbar radiculopathy or referred hip pain. - The immediate plan is to increase gabapentin to 300 mg three times daily and obtain X-rays of the lower back. - The patient is encouraged to increase activity with walking and stretching. - I will consider a referral for physical therapy if there is no improvement by his next visit in 4 months. Code(s): M54.50 - Low back pain, unspecified Category: Medical Qualifiers: Chronicity: chronic Back pain laterality: left Sciatica presence: with sciatica Sciatica laterality: sciatica of left side Qualified Code(s): M54.42 - Lumbago with sciatica, left side; G89.29 - Other chronic pain (2) Diabetes: Comment: - Condition is well-controlled, with a recent A1c of 5.7%, which is in the prediabetes range. - This has likely improved with his significant weight loss. - He will continue his current medication, Jardiance. - Labs, including A1c, will be rechecked prior to his next visit. Code(s): E11.9 - Type 2 diabetes mellitus without complications Category: Medical Qualifiers: Diabetes mellitus type: type 2 Diabetes mellitus custodial insulin use: without intermediate teacher use Diabetes mellitus complication status: without complication Qualified Code(s): E11.9 - Type 2 diabetes mellitus without complications (3) HLD (hyperlipidemia): Comment: - Well-controlled on rosuvastatin 40 mg and ezetimibe 10 mg, with a recent LDL of 66 mg/dL. - He will continue his current medications. - A lipid panel will be part of the labs ordered for his next visit. Code(s): E78.5 - Hyperlipidemia, unspecified Category: Medical Qualifiers: Hyperlipidemia type: other hyperlipidemia Qualified Code(s): E78.49 - Other hyperlipidemia (4) Hx of CABG: Comment: Four vessel coronary artery bypass grafting, December 2020 with VANCE to LAD, free radial to OM and free saphenous venous graft to diagonal as well as RPDA - Stable post-quadruple bypass. - He follows with cardiology. - He will continue aspirin 81 mg and his antihypertensive regimen. Code(s): Z95.1 - Presence of aortocoronary bypass graft Category: Surgical (5) Hypertension, essential, benign: Comment: - Managed with amlodipine, isosorbide mononitrate, and metoprolol tartrate. - He will continue the current regimen. Code(s): I10 - Essential (primary) hypertension Category: Medical (6) Major depression in partial remission: Comment: - The patient reports situational depression is managed with medication. - It was noted that his previous physician had placed a referral to psychiatry for medication management, as some of his medications require closer monitoring. - He will continue his current regimen. Code(s): F32.4 - Major depressive disorder, single episode, in partial remission Category: Medical Qualifiers: Major depression recurrence: recurrent Qualified Code(s): F33.41 - Major depressive disorder, recurrent, in partial remission (7) Hyperhidrosis: Comment: - Well-controlled with glycopyrrolate. - He will continue taking as needed Code(s): R61 - Generalized hyperhidrosis Category: Medical Plan: Health Maintenance: - Immunizations: Influenza vaccine administered in office today. - Colon Cancer Screening: Patient had a recent colonoscopy that found precancerous polyps. 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 - Lung Cancer Screening: The patient does not meet the criteria for screening based on his smoking history. - Follow-up Visit: The patient will return in approximately 4 months for a physical exam. - Labs: A comprehensive lab panel will be ordered to be drawn one week before his next scheduled visit. Patient was informed and verbally consented to the use of an ambient scribe for clinic note documentation during this visit. Plan I discussed the patient's primary complaint of low back pain with him. I explained that we would start by increasing his gabapentin dose and getting X-rays of his lower back to investigate the cause. I recommended he continue to stay active with walking and stretching, and we discussed that if these measures do not help, we would consider a referral for physical therapy at his next visit. We reviewed the importance of following up with his coal mine inspector regarding the precancerous polyps found on his recent colonoscopy. I administered an influenza vaccine at his request. I informed him that I have sent the new prescription to his pharmacy and that he should schedule a follow-up appointment in about four months, with labs to be drawn a week prior. Orders: Orders XR lumbar spine 6V w bending Today M54.50 - Low back pain, unspecified Comprehensive Met. Panel 4 Months Z00.00 - Encounter for general adult medical examination without abnormal findings Complete Blood Count Auto Diff 4 Months Z00.00 - Encounter for general adult medical examination without abnormal findings Hemoglobin A1c 4 Months Z00.00 - Encounter for general adult medical examination without abnormal findings Microalbumin, Random (w Creat) 4 Months Z00.00 - Encounter for general adult medical examination without abnormal findings TSH reflex Free T4 4 Months Z00.00 - Encounter for general adult medical examination without abnormal findings Vitamin D 25-OH Total 4 Months Z00.00 - Encounter for general adult medical examination without abnormal findings Influenza [id number] High Dose Immunization Today Z23 - Encounter for immunization Hepatitis A,B,C Profile 4 Months Z00.00 - Encounter for general adult medical examination without abnormal findings HIV Ab/Ag 4 Months Z00.00 - Encounter for general adult medical examination without abnormal findings Lipid Panel 4 Months Z00.00 - Encounter for general adult medical examination without abnormal findings Syphilis Screen 4 Months Z00.00 - Encounter for general adult medical examination without abnormal findings Medications: New gabapentin 300 mg PO TID 90 caps 2RF 30 days Discontinued gabapentin Discontinued Reason: Doctor's Order 100 mg PO TID PRN 270 caps 3RF pain Patient Instructions: - Your prescription for gabapentin has been changed to 300 mg three times a day and has been sent to your pharmacy. - Please go to the hospital's imaging department for a walk-in X-ray of your lower back. - I will contact you through the patient portal with your X-ray results. - Continue trying to walk and do stretching exercises to help your back. - It is very important that you follow up with your gastrointestinal doctor, Dr. Houser, about the polyps found during your colonoscopy. - You received a flu shot today. - Please schedule an appointment at the front office assistant to see me again in about 4 months for a physical exam. - One week before that appointment, please go to the lab to have your blood drawn.
[2025-01-28 14:09] VITALS: BP 128/70; PULSE 64; TEMP 37; O2SAT 97; BMI 27.4
--- OUTSIDE RECORDS SUMMARY | 2025-01-28 18:44 | XMS_ITS | Patient Health Record ---
Author Organization [facility] Address [address] [place] [address] Care Team Providers Care Coordinator Of Online Programs Name Role Phone ALISTAIR MCKEON Primary Care Provider Mati Holder Jr Unavailable Allergies No Known Allergies Results Component Value Reference Range Flag Notes Pathology Reviewed date:11/28/2024 03:09:46 PM Interpretation: Performing Lab:[facility], [address] [place] [phone] Notes/Report: Glucose, Whole Blood Reviewed date:11/14/2024 04:05:48 PM Interpretation: Performing Lab:[facility], [address] [place] [phone] Notes/Report: Glucose, Whole Blood 116 60-115 mg/dL H VT TER #: [id number] Reason For Referral No Information Medications Medication SIG (Take, Route, Frequency, Duration) Notes Start Date End Date Status Rosuvastatin Calcium 40 MG Tablet Oral; Duration: 90 Unknown Jardiance 10 MG Tablet TAKE 1 TABLET BY MOUTH EVERY MORNING Oral; Duration: 30 Unknown Gabapentin 100 MG Capsule Oral; Duration: 20 Unknown Glycopyrrolate 1 MG Tablet Oral; Duration: 90 Unknown Ezetimibe 10 MG Tablet TAKE 1 TABLET BY MOUTH DAILY Oral; Duration: 90 Days Unknown ARIPiprazole 5 MG Tablet TAKE 1 TABLET B Y MOUTH EVERYDAY AT BEDTIME Oral; Duration: 30 Days Unknown Isosorbide Mononitrate ER 30 MG Tablet Extended Release 24 Hour TAKE 1 TABLET BY MOUTH EVERY DAY Oral; Duration: 90 Days Unknown Jardiance 10 MG Tablet TAKE 1 TABLET BY MOUTH EVERY DAY Oral; Duration: 90 Days Unknown Metoprolol Tartrate 25 MG Tablet TAKE 1/2 TABLET BY MOUTH TWICE A DAY Oral; Duration: 90 Unknown amLODIPine Besylate 10 MG Tablet Oral; Duration: 90 Unknown DULoxetine HCl 60 MG Capsule Delayed Release Particles TAKE 2 CAPSULES BY MOUTH EVERY DAY Oral; Duration: 90 Unknown Immunizations Vaccine Route Administration Date Status Comme nts Influenza Unknown 11/29/2021 Administered Influenza Unknown 11/27/2023 Administered Social History Tobacco Use: Social History Observation Description Date Details (start date - stop date) Never Smoker NA - NA Social History Drugs/Alcohol: Social Info Question Answer Notes Alcohol Screen Did you have a drink containing alcohol in the past year? 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 Problems Problem Type SNOMED Code ICD Code Onset Dates Problem Status W/U Status Risk Notes Problem Colon cancer screening (009816835) Colon cancer screening (Z12.11) Active confirmed Problem Pre-procedure evaluation check (278799643) Encounter for other preprocedural examination (Z01.818) Active confirmed Problem Long-term current use of antiplatelet drug (224500960032022 ) Long-term use of aspirin therapy (Z79.82) Active confirmed Vital Signs Temperature 98.6 degrees Fahrenheit 10/15/2024 Blood pressure diastolic 01 mm Hg 10/15/2024 Height 76 in 10/15/2024 Blood pressure systolic 001 mm Hg 10/15/2024 Weight 223.2 lbs 10/15/2024 BMI 27.17 kg/m2 10/15/2024 Encounters Encounter Location Date Provider Diagnosis [facility] [place] [facility] Outpatient [address] [place] [id number] 11/14/2024 Mati Houser Jr [facility] [address] [place] [phone] 10/15/2024 Mati Houser Jr Colon cancer screening Z12.11 ; Encounter for other preprocedural examination Z01.818 and Long-term use of aspirin therapy Z79.82 [facility] [address] [place] [phone] 10/15/2024 Mati Houser Jr [facility] [address] [place] [phone] 11/28/2024 Mati Houser Jr [facility] [address] [place] [address] 12/24/2024 Mati Houser Jr Assessments Encounter Date Diagnosis (ICD Code) Assessment [...] Provider Name:Mati moreno Jr, 05/19/2025 07:30:00 AM, [address] [place] [address] , [place], [place], [phone], Insurance Providers Payer Name Payer Address Payer Phone Subscriber Number Group Number Insured Name Patient Relationship to Insured Coverage Start Date Coverage End Date [facility] [address] [place] [address] [phone] [id number] RELL HERRING Self - patient is the insured Medical (General) History Medical History History ICD Code Diabetes mellitus type 2 NSTEMI 01/02 BPH Hyperlipidemia Depression/anxiety stents put in 10/05 Surgical History Surgery Date(Month/Year) CABG x4 02/01 hip replacement 2019 quadriceps reconstruction 2005 Coronary artery disease with stent place ment 10/05
== END 2025-01-28 14:37 | disposition home or self-care (01) ==
LOC: HO.HMCHD 14:02
PROVIDERS: PCP Student in an Organized Health Care Education/Training Program; Visit Provider Student in an Organized Health Care Education/Training Program
DX: M54.42 Lumbago with sciatica, left side (principal); G89.29 Other chronic pain; E11.9 Type 2 diabetes mellitus without complications; E78.49 Other hyperlipidemia; Z95.1 Presence of aortocoronary bypass graft; I10 Essential (primary) hypertension; F33.41 Major depressive disorder, recurrent, in partial remission; R61 Generalized hyperhidrosis; Z23 Encounter for immunization

== ENCOUNTER → 2025-01-28 14:01 | Outpatient (BNVA) | payer OTHER, SELFPAY | PROVIDERS: PCP Internal Medicine; Visit Provider Student in an Organized Health Care Education/Training Program | DX: M54.42 Lumbago with sciatica, left side (principal); G89.29 Other chronic pain; E11.9 Type 2 diabetes mellitus without complications; E78.49 Other hyperlipidemia; I10 Essential (primary) hypertension; F33.41 Major depressive disorder, recurrent, in partial remission; R61 Generalized hyperhidrosis; I25.10 Atherosclerotic heart disease of native coronary artery without angina pectoris; Z79.82 Long term (current) use of aspirin; Z79.84 Long term (current) use of oral hypoglycemic drugs; Z79.899 Other long term (current) drug therapy; Z95.1 Presence of aortocoronary bypass graft; Z13.31 Encounter for screening for depression; Z13.39 Encounter for screening examination for other mental health and behavioral disorders | CPT/HCPCS: 90471; 90662; 96127; 99212 ==

== ENCOUNTER 2025-02-10 13:36 | Outpatient (AMB) | payer OTHER, SELFPAY ==
--- OUTSIDE RECORDS SUMMARY | 2024-11-14 04:10 | XMS_ITS ---
Author Organization [facility] Address [address] [place] [address] Care Team Providers Care Online Program Coordinator Name Role Phone ALISTAIR MCKEON Primary Care Provider Mati Holder Jr Unavailable [phone] REASON FOR VISIT screening Medications Medication SIG [...] Active Encounters Encounter Location Date Provider Diagnosis [facility] Out[facility] [address] [place] [phone] 11/14/2024 Mati Houser Jr Plan Of Treatment Next Appt Details Provider Name:Mati moreno Jr, 05/19/2025 07:30:00 AM, [address] [place] [address], [phone], Progress Notes * RELL HERRINGDOB:[birth year] (64 yo M)Acc No.[id number]:11/14/2024 COLON WITH MAC Patient: RELL MORRIS Provider: Jordon Houser MD :1960 A ge:64 Y S ex:Male Date:11/14/2024 Address:[address] [place] [address], [facility] Pcp:ALISTAIR MCKEON Subjective: * Chief Complaints: * [...] 1 Generated for Mason canales/Kalyn/Rebecca on: 1 05:28 PM EST
[2025-02-10 13:52] VITALS: BP 110/62; PULSE 73; BMI 27.7
--- NOTE | 2025-02-10 13:52 | A.OFFVIS_ITS ---
Vital Signs 02/10/25 13:52 Height 6 ft 4 in Weight 227 lb 8.273 oz BMI 27.7 BP 110/62 Blood Pressure Location Lt brachial Position Sitting Pulse 73 Pulse Source Pulse Oximeter Intake Visit Reasons: 6 mth f/up Face Burler Required: No Allergies Penicillins Allergy (Mild, Verified 02/10/25 13:55) Vomiting Medication List - Last Reconciled 02/12/25 by Dasia Varela NP-C amlodipine 10 mg PO DAILY aripiprazole 5 mg PO BEDTIME aspirin 81 mg PO DAILY duloxetine 120 mg (2 x 60 mg) PO DAILY empagliflozin (Jardiance) 10 mg PO DAILY 90 days ezetimibe 10 mg PO DAILY gabapentin 300 mg PO TID 30 days glycopyrrolate 2 mg (2 x 1 mg) PO DAILY 90 days isosorbide mononitrate ER 30 mg PO DAILY rosuvastatin 40 mg PO DAILY HPI HPI 6 mth f/up: Details: Keo is a 89with past medical history of hyperlipidemia, CAD, history of posterior NH, coronary artery bypass grafting 2020, cardiac catheterization 10/05/2023 for decreased activity tolerance and 2 stents placed, in the left circumflex into the left main who presents for follow-up. On last visit he had reported increased fatigue and some tingling in his left arm. A nuclear stress test was ordered and denied by the insurance. Today he reports he has been feeling much better overall since last visit. His fatigue and left arm tingling resolved without treatment. He currently has no cardiac concerns. He has no chest discomfort at rest or with activity and has not needed NTG SL since his stent placement. No shortness of breath, PND, orthopnea or edema. No lightheadedness, presyncope, syncope, falls. No mobility issues of his extremities. 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 He still uses marijuana regularly to help sleep. Taking all meds as directed. [facility] Medical History Hyperhidrosis Hypertension, essential, benign Low back pain Anxiety BPH (benign prostatic hyperplasia) Myocardial infarction Major depression in partial remission CAD (coronary artery disease) Diabetes Depression Patient denies medical problems Surgical History History of colonoscopy (11/14/24) History of surgery on lower extremity (~2005) History of hip replacement (~2019) S/P cardiac catheterization Stented coronary artery History of cardiac cath Hx of CABG Family History Father No problems noted. Mother CAD (coronary artery disease) Social History Housing: House Alcohol intake: never Patient Tobacco Use Status: Never used Tobacco e-Cigarette/Vaping Use: Never Used Substance Use Type: Marijuana service: No Current occupational status: employed Cognitive needs: No Hearing needs: No Vision needs: Yes (rx glasses) Review of Systems Const All systems reviewed & are unremarkable except as noted in HPI and below Card Denies chest pain, Denies chest pain at rest, Denies chest pain with activity, Denies rapid heart rate, Denies pedal edema, Denies edema, Denies leg edema, Denies lightheadedness, Denies palpitations, Denies dyspnea, Denies dyspnea on exertion and Denies orthopnea Resp Denies cough, Denies dyspnea and Denies dyspnea on exertion GI Denies hematochezia and Denies change in stool character Musc Denies abnormal gait, Denies muscle weakness, Denies numbness, Denies radiating pain into limb, Denies stiffness and Denies tingling Neuro Denies abnormal gait, Denies numbness and Denies tingling Endo Denies palpitations Physical Exam Vital Signs: Last Vital Signs Pulse 73 02/10/25 13:52 BP 110/62 02/10/25 13:52 BMI result Body Mass Index 27.7 Const General: cooperative, healthy appearing, comfortable and no acute distress Orientation/consciousness: patient oriented x3 Neck Neck: Yes normal visual inspection and Yes no JVD Resp Effort & Inspection: normal respiratory effort Auscultation: clear to auscultation bilaterally, no crackles, no rales, no rhonchi and no wheezes Cardio Jugular venous distension: no JVD Rate: regular rate Rhythm: regular rhythm Heart sounds: S1 normal heart sound present, S2 normal heart sound present, no murmurs and no rubs Neuro General: patient oriented x3 Extrem General: Yes normal to inspection and No no pedal edema Psych Appearance: grossly normal Mental Status: mental status grossly normal Speech and movement: Normal speech and movement present Assessment & Plan Assessment & Plan (1) CAD (coronary artery disease): Code(s): I25.10 - Atherosclerotic heart disease of [place] coronary artery without angina pectoris Category: Medical Plan: History of acute posterior NH 12/2020, cardiac catheterization at that time showed severe three-vessel CAD. He underwent coronary artery bypass grafting, four-vessel 01/12/2021. He had done well until last yeart when he noticed a decrease in his activity tolerance with fatigue. An echocardiogram was done on 09/03/2023 showing EF 50-55%, basal inferior and basal inferior lateral segment akinetic. Cardiac catheterization on 10/05/2023 showing left main into the circumflex severe stenosis involving the ostium circumflex with 90% calcified stenosis, JOHN placed from the circumflex to the left main then another stent in the left main. His grafts were all patent. On last visit he reported recurrent fatigue, which then resolved. A nuclear stress test was denied by the insurance. Echo done 09/16/24 shows no signficant change from last. Currently feeling well with no cardiac concerns. He stopped Brilinta after 1 yr use. Continue aspirin indefinitely. Continue amlodipine, isosorbide as antianginals. Continue ros uvastatin and Zetia with ideal LDL goal less than 70. Cardiology office follow- up 6 months, sooner if needed. (2) Hx of CABG: Comment: Four vessel coronary artery bypass grafting, December 2020 with VANCE to LAD, free radial to OM and free saphenous venous graft to diagonal as well as RPDA - Stable post-quadruple bypass. - He follows with cardiology. - He will continue aspirin 81 mg and his antihypertensive regimen. Code(s): Z95.1 - Presence of aortocoronary bypass graft Category: Surgical Plan: As above (3) HLD (hyperlipidemia): Comment: - Well-controlled on rosuvastatin 40 mg and ezetimibe 10 mg, with a recent LDL of 66 mg/dL. - He will continue his current medications. Code(s): E78.5 - Hyperlipidemia, unspecified Category: Medical Qualifiers: Hyperlipidemia type: other hyperlipidemia Qualified Code(s): E78.49 - Other hyperlipidemia Plan: [place] LDL goal less than 70. Labs done 07/22/2024 showed LDL 66. Continue rosuvastatin and Zetia. (4) Fatigue: Code(s): R53.83 - Other fatigue Category: Medical Plan: His prior anginal symptoms. Plan Time spent on chart review, documentation, interview and assessment Coding Level of Care Code Est Pt Level 4 (45305) Add On Problem Visit Only Diagnoses CAD (coronary artery disease) I25.10 Hx of CABG Z95.1 Other hyperlipidemia E78.49 Hyperlipidemia type: other hyperlipidemia Fatigue R53.83 Time Spent (min) 28
--- OUTSIDE RECORDS SUMMARY | 2025-02-10 17:28 | XMS_ITS | Patient Health Record ---
Author Organization [facility] Address [address] [place] [address] Care Team Providers Care General Lithographic Worker Name Role Phone ALISTAIR MCKEON Primary Care Provider Mati Holder Jr Unavailable [phone] Allergies No Known Allergies Results Component Value Reference Range Flag Notes Pathology Reviewed date:11/28/2024 03:09:46 PM Interpretation: Performing Lab:[facility], [address] [place] [phone] Notes/Report: Glucose, Whole Blood Reviewed date:11/14/2024 04:05:48 PM Interpretation: Performing Lab:[facility], [address] [place] [phone] Notes/Report: Glucose, Whole Blood 116 60-115 mg/dL H AR TER #: [id number] Reason For Referral No Information Medications Medication [...] Details Miscellaneous: Marital status: 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 Problems Problem Type SNOMED Code ICD Code Onset Dates Problem Status W/U Status Risk Notes Problem Colon cancer screening (724390222) Colon cancer screening (Z12.11) Active confirmed Problem Pre-procedure evaluation check (913290207) Encounter for other preprocedural examination (Z01.818) Active confirmed Problem Long-term current use of antiplatelet drug (996838090371920 ) Long-term use of aspirin therapy (Z79.82) Active confirmed Vital Signs Temperature 98.6 degrees Fahrenheit 10/15/2024 Blood pressure diastolic 01 mm Hg 10/15/2024 Height 76 in 10/15/2024 Blood pressure systolic 001 mm Hg 10/15/2024 Weight 223.2 lbs 10/15/2024 BMI 27.17 kg/m2 10/15/2024 Encounters Encounter Location Date Provider Diagnosis [facility] Out[facility] [address] [place] [id number] 11/14/2024 Mati Houser Jr [facility] [address] [place] [phone] 10/15/2024 Mati Houser Jr Colon cancer screening Z12.11 ; Encounter for other preprocedural examination Z01.818 and Long-term use of aspirin therapy Z79.82 [facility] [address] [place] [phone] 10/15/2024 Mati Houser Jr [facility] [address] [place] [phone] 11/28/2024 Mati Houser Jr [facility] [address] [place] [address] 12/24/2024 Mati Houser Jr Assessments Encounter Date [...] Provider Name:Mati moreno Jr, 05/19/2025 07:30:00 AM, [address] [place] [address] , [place], [place], [phone], Insurance Providers Payer Name Payer Address Payer Phone Subscriber Number Group Number Insured Name Patient Relationship to Insured Coverage Start Date Coverage End Date [facility] [address] [place] [address] [phone] [id number] RELL HERRING Self - patient is the insured Medical (General) History Medical History History ICD Code Diabetes mellitus type 2 NSTEMI 01/02 BPH Hyperlipidemia Depression/anxiety stents put in 10/05 Surgical History Surgery Date(Month/Year) CABG x4 02/01 hip replacement 2019 quadriceps reconstruction 2005 Coronary artery disease with stent place ment 10/05
== END 2025-02-10 14:24 | disposition home or self-care (01) ==
LOC: HO.HCS 13:37
PROVIDERS: PCP Internal Medicine; Visit Provider Nurse Practitioner Family
DX: I25.10 Atherosclerotic heart disease of native coronary artery without angina pectoris (principal); Z95.1 Presence of aortocoronary bypass graft; E78.49 Other hyperlipidemia; R53.83 Other fatigue
CPT/HCPCS: 99214

== ENCOUNTER → 2025-02-10 13:36 | Outpatient (BNVA) | payer OTHER, SELFPAY | PROVIDERS: PCP Internal Medicine; Visit Provider Nurse Practitioner Family | DX: I25.10 Atherosclerotic heart disease of native coronary artery without angina pectoris (principal); I10 Essential (primary) hypertension; E78.49 Other hyperlipidemia; Z79.899 Other long term (current) drug therapy; Z79.82 Long term (current) use of aspirin; Z95.1 Presence of aortocoronary bypass graft; R53.83 Other fatigue | CPT/HCPCS: 99212 ==